=== PATIENT | male | born 1945 | race Caucasian/White ===

== ENCOUNTER → 2016-09-22 | Outpatient (CLI) | payer MEDICARE ==
[~2016-09-22] MED LIST: ASP81TEC PO; CLOP75TA28 PO; FINA5TAB6 PO; HYDR-3454 PO; ISOS30TA3 PO; LISI-552 PO; LISI10TA2 PO; LOVA20TA2 PO; LOVA40TA2 PO; LSNP20T PO; METO-351 PO; OMG1KC PO; TAMS0.4C2 PO; TICA90TA PO; TRAM50TA2
--- OUTSIDE RECORDS SUMMARY | 2016-09-22 17:01 | XMS REPORT | Continuity of Care Document ---
Author Author [facility] Organization [facility] Address Unknown Phone Unavailable Care Team Providers Care Anesthesiologists' Assistant Name Role Phone Yassine Garcia PCP Unavailable Source Comments Some departments are not documenting in the electronic medical record. If you do not see the information that you expected, contact Release of Information in the Health Information Management department at [phone] for further assistance in locating additional records.[facility] Active Allergies and Adverse Reactions No Known Allergies Current Medications Prescription Sig. Disp. Refills Start End Date Status Date aspirin EC 81 mg tablet Take 81 mg by mouth Active daily. Take with food. clopiDOGrel (PLAVIX) 75 Take 75 mg by mouth Active mg tablet daily. lisinopril (PRINIVIL; Take 10 mg by mouth Active ZESTRIL) 10 mg tablet daily. finasteride (PROSCAR) 5 Take 5 mg by mouth at Active mg tablet bedtime daily. lovastatin(+) (MEVACOR) Take 20 mg by mouth at Active 20 mg tablet bedtime daily. tamsulosin (FLOMAX) 0.4 Take 0.4 mg by mouth at Active mg capsule bedtime daily. Do not crush, chew or open capsules. Take 30 minutes following the same meal each day. metoprolol XL (TOPROL XL) Take 25 mg by mouth Active 25 mg extended release daily. tablet [place]-3 Fatty Take 3 Caps by mouth Active Acids-Vitamin E (FISH daily. OIL) 1,000 mg cap piperacillin/tazobactam Administer 3.375 g 1400 mL 0 09/20/19 Active (ZOSYN) iso-osmotic IVPB through vein every 6 17 17 hours for 7 days. Active Problems Problem Noted Date Obstructive jaundice 09/11/2016 Diarrhea 09/11/2016 Weight loss 09/11/2016 Transaminitis 09/11/2016 Hyperbilirubinemia 09/11/2016 Most Recent Encounters Date Type Specialty Providers Description 09/21/2016 Telephone Infectious Diseases Virginia Rincon DO Outpatient Antibiotic Therapy (Opat) 09/18/2016 [facility] Radiology Nataliia Dumas DO Arrived Encounter 09/18/2016 Orders Only Transplant Surgery Teo Brooke RN Obstructive jaundice (Primary Dx) 09/18/2016 Telephone General Internal Medicine Nataliia Dumas DO Post Procedure 09/16/2016 [facility] Radiology Clara Patel APRN Arrived Encounter Kobi Alvarez RN Lemons, Steven, MD 09/14/2016 [facility] Radiology Scottie Kan MD Encounter 09/14/2016 Screening Form 09/14/2016 Endo Rslt Enc Self, Referral 09/14/2016 Endo Rslt Enc Self, Referral 09/14/2016 Anesthesia Lottie Garcia, PRINTER MAINTAINER Event 09/14/2016 Surgery Mykel Chambers MD ULTRASONOGRAPHY ENDOSCOPY ESOPHAGUS 09/12/2016 Telephone Gastroenterology Deepak Fam MD Error 09/11/2016 [facility] Radiology Gabriel Newberry MD Encounter 09/11/2016 [facility] Nereyda Muhammad MD Obstructive jaundice - Encounter Gabriel Newberry MD 09/20/2016 Nataliia Dumas DO Olyaee, Mojtaba, MD Social History Tobacco Use Types Packs/Day Years Used Date Former Smoker Alcohol Use Drinks/Week oz/Week Comments No 0 Standard 0.0 drinks or equivalent Last Filed Vital Signs Vital Sign Reading Time Taken Blood Pressure 116/59 09/20/2016 3:00 PM [facility] Pulse 56 09/20/2016 3:00 PM [facility] [employer] Temperature 36.4 C (97.5 F) 09/20/2016 3:00 PM [facility] [employer] Respiratory Rate - - Height 1.778 m (5' 10") 09/15/2016 11:34 AM [facility] Weight 78.926 kg (174 lb) 09/15/2016 11:34 AM [employer] Body Mass Index 24.97 09/15/2016 11:34 AM [employer] Oxygen Saturation 99% 09/20/2016 3:00 PM [facility] [employer] Plan of Care Date Type Specialty Providers Description 10/01/2016 Appointment Radiology Taco Jung MD [address] [place] [address] [phone] (Fax) 10/01/2016 Appointment Transplant Surgery Taco Jung MD [address] [place] [address] [phone] (Fax) 10/01/2016 Appointment Infectious Diseases Virginia Rincon DO [address] [place] [address] [phone] (Fax) 10/01/2016 Appointment Anesthesiology Taco Jung MD [address] [place] [address] [phone] (Fax) 10/01/2016 Appointment Radiology Virginia Rincon DO [address] [place] [address] [phone] (Fax) Health Maintenance Due Date Last Done Comments Physical (Comprehensive) 1952 Exam Pertussis Vaccine 1954 Tetanus Vaccine 1960 Colorectal Cancer 1993 Screening Shingles Vaccine 2003 Prevnar/Pneumovax (#1) 2008 Influenza Vaccine 05/14/2016 Procedures from Last 3 Months Procedure Name Priority Date/Time Associated Diagnosis Comments CONSULT IV THERAPY TEAM Routine 09/19/2016 1:31 PM [facility] CONSULT IV THERAPY TEAM Routine 09/16/2016 2:02 PM [facility] CHOLANGIOPANCREATOGRAPHY 09/14/2016 [place]'s tumor (HCC) ENDOSCOPY RETROGRADE 1:15 PM [employer] ULTRASONOGRAPHY ENDOSCOPY 09/14/2016 [place]'s tumor (HCC) ESOPHAGUS 1:15 PM [facility] Results from Last 3 Months COMPREHENSIVE METABOLIC PANEL (09/20/2016 4:05 AM)Only the most recent of 10 results within the time period is included. Component Value Range Sodium 135 (L) 137-147 MMOL/L Potassium 3.6 3.5-5.1 MMOL/L Chloride 104 98-110 MMOL/L Glucose 105 (H) 70-100 MG/DL Blood Urea Nitrogen 15 7-25 MG/DL Creatinine 0.96 0.4-1.24 MG/DL Calcium 8.4 (L) 8.5-10.6 MG/DL Total Protein 5.6 (L) 6.0-8.0 G/DL Total Bilirubin 4.7 (H) 0.3-1.2 MG/DL Albumin 2.7 (L) 3.5-5.0 G/DL Alk Phosphatase 377 (H) 25-110 U/L AST (SGOT) 52 (H) 7-40 U/L CO2 23 21-30 MMOL/L ALT (SGPT) 58 (H) 7-56 U/L Anion Gap 8 3-12 eGFR Non >60Comment: >60 mL/min The eGFR is not validated for use in drug dosing adjustments. Continue to use estimated creatinine clearance per dosing reference text. Please contact the Clinical Pharmacist for questions. eGFR >60Comment: >60 mL/min The eGFR is not validated for use in drug dosing adjustments. Continue to use estimated creatinine clearance per dosing reference text. Please contact the Clinical Pharmacist for questions. Specimen Blood CBC AND DIFF (09/20/2016 4:05 AM)Only the most recent of 10 results within the time period is included. Component Value Range White Blood Cells 8.0 4.5-11.0 K/UL RBC 3.63 (L) 4.4-5.5 M/UL Hemoglobin 11.4 (L) 13.5-16.5 GM/DL Hematocrit 32.9 (L) 40-50 % MCV 90.9 80-100 FL MCH 31.4 26-34 PG MCHC 34.5 32.0-36.0 G/DL RDW 14.4 11-15 % Platelet Count 200 150-400 K/UL MPV 10.5 7-11 FL Neutrophils 72 41-77 % Lymphocytes 15 (L) 24-44 % Monocytes 9 4-12 % Eosinophils 4 0-5 % Basophils 0 0-2 % Absolute Neutrophil Count 5.80 1.8-7.0 K/UL Absolute Lymph Count 1.20 1.0-4.8 K/UL Absolute Monocyte Count 0.70 0-0.80 K/UL Absolute Eosinophil Count 0.30 0-0.45 K/UL Absolute Basophil Count 0.00 0-0.20 K/UL Specimen Blood US DOPPLER VENOUS W EXTRM LEFT (09/18/2016 8:18 PM) Impressions No evidence of left upper extremity DVT. Finalized by EDMUNDO MCNEAL M.D. on 09/19/2016 8:31 AM. Dictated by EDMUNDO MCNEAL M.D. on 09/19/2016 8:29 AM. Narrative Ultrasound Doppler of left upper extremity: Clinical Indication: 71-year-old male with left upper extremity swelling. Weight loss. Obstructive jaundice. Technique: Multiple real-time grayscale sonographic images were obtained throughout the left upper extremity with additional color Doppler and duplex acquisitions. Findings: There is no filling defect within the left cephalic, brachial, basilic or axillary veins in the left upper extremity. The left subclavian, internal jugular and innominate veins are widely patent. Subcutaneous edema is present within the upper arm and forearm. Procedure Note Interface, Radiant Results - Sat Sep 19, 2016 8:34 AM [facility] Ultrasound Doppler of left upper extremity: Clinical Indication: 71-year-old male with left upper extremity swelling. Weight loss. Obstructive jaundice. Technique: Multiple real-time grayscale sonographic images were obtained throughout the left upper extremity with additional color Doppler and duplex acquisitions. Findings: There is no filling defect within the left cephalic, brachial, basilic or axillary veins in the left upper extremity. The left subclavian, internal jugular and innominate veins are widely patent. Subcutaneous edema is present within the upper arm and forearm. IMPRESSION No evidence of left upper extremity DVT. Finalized by EDMUNDO MCNEAL M.D. on 09/19/2016 8:31 AM. Dictated by EDMUNDO MCNEAL M.D. on 09/19/2016 8:29 AM. IR ASPIRATION/DRAIN (09/18/2016 4:08 PM) Narrative This IR procedure does not require a dictated result. CT GUIDE ABCESS DRAIN W CATH (09/16/2016 10:07 AM) Impressions CT-guided transhepatic placement of a 8 Tunisian pigtail drain into the subhepatic fluid collection/biloma. Approved by Bal George M.D. on 09/16/2016 10:23 AM By my electronic signature, I attest that I have personally reviewed the images for this examination and formulated the interpretations and opinions expressed in this report Finalized by Nicholas Borrego M.D. on 09/16/2016 2:01 PM. Dictated by Bal George M.D. on 09/16/2016 10:[address]-guided drain placement: Clinical Indication: Subhepatic fluid collection/biloma Operators: Chester Borrego M.D., Bal George M.D. Technique and Findings: Chester Mohamud M.D, the attending radiologist, was present for the critical and irizarry portions of the procedure with a midlevel, resident, and/or fellow participating.Overlapping portions were non irizarry and I was immediately available.I interpret the critical and irizarry portion of this procedure to have been needle access. The nature of the procedure, risks, benefits, and expected outcomes were discussed with the patient who then provided informed written and verbal consent. The patient was placed in a supine position on the CT scanner. Initial scans through the abdomen demonstrated a subhepaticfluid collection. There is limited access due to overlying bowel loops, so a transhepatic approach was used. The patient was prepped and draped in the usual sterile manner and the superficial tissues were anesthetized with 2% lidocaine solution. An 18 gauge Seldinger needle was advanced into the fluid collection under CT guidance. Green , purulent fluid was aspirated. A Aceves wire was advanced into the fluid collection and a 8 Tunisian pigtail catheter was advanced into the fluid collection. Approximately 10 ml of fluid was aspirated. The pigtail catheter was sutured in place and connected to a J VAC system. The patient tolerated the procedure well and left the department in unchanged condition. IV medication: 3 mg Versed, 150 mcg fentanyl. Procedure Note Interface, Radiant Results - WedSep 16, 2016 2:[address]-guided drain placement: Clinical Indication: Subhepatic fluid collection/biloma Operators: Chester Borrego M.D., Bal George M.D. Technique and Findings: Chester Mohamud M.D, the attending radiologist, was present for the critical and irizarry portions of the procedure with a midlevel, resident, and/or fellow participating. Overlapping portions were non irizarry and I was immediately available. I interpret the critical and iriazrry portion of this procedure to have been needle access. The nature of the procedure, risks, benefits, and expected outcomes were discussed with the patient who then provided informed written and verbal consent. The patient was placed in a supine position on the CT scanner. Initial scans through the abdomen demonstrated a subhepatic fluid collection. There is limited access due to overlying bowel loops, so a transhepatic approach was used. The patient was prepped and draped in the usual sterile manner and the superficial tissues were anesthetized with 2% lidocaine solution. An 18 gauge Seldinger needle was advanced into the fluid collection under CT guidance. Green , purulent fluid was aspirated. A Aceves wire was advanced into the fluid collection and a 8 Tunisian pigtail catheter was advanced into the fluid collection. Approximately 10 ml of fluid was aspirated. The pigtail catheter was sutured in place and connected to a J VAC system. The patient tolerated the procedure well and left the department in unchanged condition. IV medication: 3 mg Versed, [address]-guided transhepatic placement of a 8 Tunisian pigtail drain into the subhepatic fluid collection/biloma. Approved by Bal George M.D. on 09/16/2016 10:23 AM By my electronic signature, I attest that I have personally reviewed the images for this examination and formulated the interpretations and opinions expressed in this report Finalized by Nicholas Borrego M.D. on 09/16/2016 2:01 PM. Dictated by Bal George M.D. on 09/16/2016 10:21 AM. GRAM STAIN (09/16/2016 9:15 AM) Component Value Range Battery Name GRAM STAIN Specimen Description MISC FLUID ABDOMEN ABSCESS Special Requests NONE Gram Stain MODERATE NEUTROPHILS NO ORGANISMS SEEN Report Status FINAL 09/16/2016 Specimen Misc Fluid CULTURE-WOUND/TISSUE/FLUID(AEROBIC ONLY)W/SENSITIVITY (09/16/2016 9:15 AM) Component Value Range Battery Name ROUTINE CULTURE Specimen Description MISC FLUID ABDOMEN ABSCESS Special Requests NONE Direct Gram Stain MANY NEUTROPHILS NO ORGANISMS SEEN Culture Light growth PSEUDOMONAS AERUGINOSA (A) Report Status FINAL 09/18/2016 Organism ID Light growth PSEUDOMONAS AERUGINOSA Specimen Fluid - Misc Fluid Organism Antibiotic Method Susceptibility Light growth pseudomonas aeruginosa Amikacin NIKOLAS <=8 SUSCEPTIBLE: (MCG/ML) Susceptible INTERPRETA TION Light growth pseudomonas aeruginosa Cefepime NIKOLAS 8 SUSCEPTIBLE: (MCG/ML) Susceptible INTERPRETA TION Light growth pseudomonas aeruginosa Ceftazidime NIKOLAS 4 SUSCEPTIBLE: (MCG/ML) Susceptible INTERPRETA TION Light growth pseudomonas aeruginosa Gentamicin NIKOLAS <=2 SUSCEPTIBLE: (MCG/ML) Susceptible INTERPRETA TION Light growth pseudomonas aeruginosa Levofloxacin NIKOLAS >4 RESISTANT: Resistant (MCG/ML) INTERPRETA TION Light growth pseudomonas aeruginosa Meropenem NIKOLAS 8 RESISTANT: Resistant (MCG/ML) INTERPRETA TION Light growth pseudomonas aeruginosa Piperacil/Tazobactam NIKOLAS 8/4 SUSCEPTIBLE: (MCG/ML) Susceptible INTERPRETA TION Light growth pseudomonas aeruginosa Tobramycin NIKOLAS <=2 SUSCEPTIBLE: (MCG/ML) Susceptible INTERPRETA TION Light growth pseudomonas aeruginosa Aztreonam NIKOLAS 16 INTERMEDIATE: (MCG/ML) Intermediate INTERPRETA TION Light growth pseudomonas aeruginosa Method NIKOLAS NIKOLAS (MCG/ML) (MCG/ML) INTERPRETATION INTERPRETA TION CULTURE-ANAEROBIC (09/16/2016 9:15 AM) Component Value Range Battery Name ANAEROBE CULTURE Specimen Description MISC FLUID ABDOMEN ABSCESS Special Requests NONE Culture NO ANAEROBES ISOLATED Report Status FINAL 09/22/2016 Specimen Fluid - Misc Fluid 2-D + DOPPLER ECHOCARDIOGRAM (09/15/2016 11:34 AM) Component Value Range BSA 1.97 m2 ECHO EF 55 % LVIDD 5.5 4.2-5.9 cm LVIDS 4.2 cm IVS 1.0 0.6-1.0 cm PW 0.9 0.6-1.0 cm FS 23.64 28-44 % EF 40.19 % LA size 4.8 3.0-4.0 cm LA volume 63.0 18-58 mL Left Atrium Index 31.98 10-32 Right Ventricular Basal 2.9 cm (2.4-4.2) Diameter Right Atrial Area 14.0 cm2 (<=18) Right Ventricular Mid 2.1 cm (2.0-3.5) Diameter Right Atrial Major 4.9 cm (<=5.3) Dimension Right Ventricular Long 6.6 cm (5.6-8.6) Diameter Sinus 3.5 2.1-3.5 cm AV peak velocity 1.2 m/s TV rest pulmonary artery 30 mmHg pressure E/A ratio 1.29 TDI e' 0.100 m/s E/E' ratio 9.00 MV Peak E Colt PW 0.900 m/s MV Peak A Colt 0.700 m/s Narrative Normal chamber sizes Normal left ventricular systolic function with EF=55% Normal cardiac valve structure; Mild aortic valve regurgitation. Normal pulmonary artery pressure with estimated systolic PAP=30mm Hg MRI ABD/MRCP WO/W (09/15/2016 10:27 AM) Impressions 1. Unchanged 3.5 cm fluid collection in the katy hepatis along the common hepatic duct that was noted to opacify with contrast on the September 14, 2016 ERCP.This is most consistent with a loculated biloma.Super infected fluid collection/biloma is an additional consideration given the additional ERCP findings. 2.Additional 4.1 cm fluid collection just right lateral to the duodenal bulb.Leading consideration is either a loculated area of reactive ascites or loculated biloma. 3.Development of mild, partially loculated perihepatic ascites, also likely reactive and which could be reactive ascites due to bile. 4.Development of minimal bilateral pleural effusions and mild adjacent atelectasis 5.Persistent findings of mild pancreatitis. 6.Mild intrahepatic biliary ductal dilatation.Artifact in the common bile duct either represents biliary stents or gas, though which is poorly evaluated by MRI. These findings were discussed with Dr. Dumas by telephone at 11:20 AM September Finalized by Maikol Veloz M.D. on 09/15/2016 11:25 AM. Dictated by Maikol Veloz M.D. on 09/15/2016 10:37 AM. Narrative MRI ABDOMEN AND MRCP Clinical Indication:Male, 71 years old. Mixed echogenicity irregular mass measuring up to 30 mm x 20 mm was noted in the katy hepatis area with some cystic degeneration and concern for abscess.Obstructive jaundice. Diarrhea.Weight loss.Transaminitis. Technique: Multisequence and multiplanar MR imaging was obtained through the abdomen before and following the administration of gadolinium contrast material. Additionally, noncontrast MRCP imaging was also obtained. IV Contrast:Multihance Bowel contrast: None Magnet:1.5 Lamar GE Comparison: ERCP September 14, 2016.CT September 11, 2016. FINDINGS: Lower Thorax: Development of minimal bilateral pleural effusions and mild adjacent atelectasis. Median sternotomy wires are partially visualized. Liver and Biliary system: Normal size liver without a focal lesion.There are patchy areas of heterogeneous hyperenhancement scattered throughout both lobes of the liver, which is more obvious in hepatic segment 7, that all fade on later phases of imaging and is most consistent with benign perfusion alterations.The major portal veins are all patent.A few mildly enlarged periportal lymph nodes are unchanged.Prior cholecystectomy.There is mild intrahepatic biliary ductal dilation.There is artifact in the common bile duct, either representing gas or a biliary stent.Along the course of the common hepatic duct (series 9 image 24, series 15 image 195) measuring 3.5 cm that was not present on the September 11, 2016 CT exam though appear to be present on the September 14, 2016 ERCP, and it appears to opacify with contrast on that exam.There is a minimal amount of gas within this fluid collection on the current exam.There is also been development of a small amount of perihepatic ascites, primarily located peripheral to the liver with a small amount of edema and fluid extending into the region of the katy hepatis. There is also an additional, separate fluid collection along the right lateral margin of the duodenal bulb (series 9 image 28) measuring 4.1 cm. Spleen: Unchanged mild splenomegaly Adrenal Glands and Kidneys: Unremarkable. Pancreas and Retroperitoneum: Mild persistent peripancreatic edema adjacent to the pancreatic body and tail.There are a few tiny 2 to 3 mm cystic lesions scattered throughout the pancreatic parenchyma.The main pancreatic duct is normal in caliber.There are multiple prominent central mesenteric lymph nodes present that are unchanged. Aorta and Major Vessels: Unchanged minimal focal fusiform ectasia of the infrarenal abdominal aorta measuring up to 2.4 cm with a small amount of eccentric mural thrombus at this site that is also unchanged. Bowel, Mesentery and Peritoneal space: Mild edema adjacent to the second portion of the duodenum is unchanged.An enlarged gastrohepatic ligament lymph node is unchanged (series 15 image 168) measuring 1.7 x 2.3 cm. Abdominal wall and Osseous Structures: Unremarkable. Procedure Note Interface, Radiant Results - Tue Sep 15, 2016 11:28 AM [facility] MRI ABDOMEN AND MRCP Clinical Indication: Male, 71 years old. Mixed echogenicity irregular mass measuring up to 30 mm x 20 mm was noted in the katy hepatis area with some cystic degeneration and concern for abscess. Obstructive jaundice. Diarrhea. Weight loss. Transaminitis. Technique: Multisequence and multiplanar MR imaging was obtained through the abdomen before and following the administration of gadolinium contrast material. Additionally, noncontrast MRCP imaging was also obtained. IV Contrast:Multihance Bowel contrast: None Magnet:1.5 Lamar Sanera Comparison: ERCP September 14, 2016. CT September 11, 2016. FINDINGS: Lower Thorax: Development of minimal bilateral pleural effusions and mild adjacent atelectasis. Median sternotomy wires are partially visualized. Liver and Biliary system: Normal size liver without a focal lesion. There are patchy areas of heterogeneous hyperenhancement scattered throughout both lobes of the liver, which is more obvious in hepatic segment 7, that all fade on later phases of imaging and is most consistent with benign perfusion alterations. The major portal veins are all patent. A few mildly enlarged periportal lymph nodes are unchanged. Prior cholecystectomy. There is mild intrahepatic biliary ductal dilation. There is artifact in the common bile duct , either representing gas or a biliary stent. Along the course of the common hepatic duct (series 9 image 24, series 15 image 195) measuring 3.5 cm that was not present on the September 11, 2016 CT exam though appear to be present on the September 14, 2016 ERCP, and it appears to opacify with contrast on that exam. There is a minimal amount of gas within this fluid collection on the current exam. There is also been development of a small amount of perihepatic ascites, primarily located peripheral to the liver with a small amount of edema and fluid extending into the region of the katy hepatis. There is also an additional, separate fluid collection along the right lateral margin of the duodenal bulb (series 9 image 28) measuring 4.1 cm. Spleen: Unchanged mild splenomegaly Adrenal Glands and Kidneys: Unremarkable. Pancreas and Retroperitoneum: Mild persistent peripancreatic edema adjacent to the pancreatic body and tail. There are a few tiny 2 to 3 mm cystic lesions scattered throughout the pancreatic parenchyma. The main pancreatic duct is normal in caliber. There are multiple prominent central mesenteric lymph nodes present that are unchanged. Aorta and Major Vessels: Unchanged minimal focal fusiform ectasia of the infrarenal abdominal aorta measuring up to 2.4 cm with a small amount of eccentric mural thrombus at this site that is also unchanged. Bowel, Mesentery and Peritoneal space: Mild edema adjacent to the second portion of the duodenum is unchanged. An enlarged gastrohepatic ligament lymph node is unchanged (series 15 image 168) measuring 1.7 x 2.3 cm. Abdominal wall and Osseous Structures: Unremarkable. IMPRESSION 1. Unchanged 3.5 cm fluid collection in the katy hepatis along the common hepatic duct that was noted to opacify with contrast on the September 14, 2016 ERCP. This is most consistent with a loculated biloma. Super infected fluid collection/biloma is an additional consideration given the additional ERCP findings. 2. Additional 4.1 cm fluid collection just right lateral to the duodenal bulb. Leading consideration is either a loculated area of reactive ascites or loculated biloma. 3. Development of mild, partially loculated perihepatic ascites, also likely reactive and which could be reactive ascites due to bile. 4. Development of minimal bilateral pleural effusions and mild adjacent atelectasis 5. Persistent findings of mild pancreatitis. 6. Mild intrahepatic biliary ductal dilatation. Artifact in the common bile duct either represents biliary stents or gas, though which is poorly evaluated by MRI. These findings were discussed with Dr. Dumas by telephone at 11:20 AM September Finalized by Maikol Veloz M.D. on 09/15/2016 11:25 AM. Dictated by Maikol Veloz M.D. on 09/15/2016 10:37 AM. GI ENDO CATH VENICE & PANC DUCT (09/14/2016 6:47 PM) Narrative This order has been auto finalized and does not contain a result. ERCP (09/14/2016 2:48 PM) Component Value Range Provation Report Patient Name: Vanessa Contreras Procedure Date: 09/14/2016 2:48 PM CSN: [id number] Date of : 1945 Gender: Male Attending Physician: Mykel Chambers MD Procedure: ERCP Indications: Ab normal liver function test, suspected biliary mass. Patient is post ERCP with biliary stent and now increasing LFTs. No histological diagnosis . Providers: Mykel Chambers MD (Doctor), Scottie Kan MD (Fellow), Arturo Ceron RN (Nurse), David Hughes, Park Guide (Park Guide) Referring Physician: Referral Self Medications: Ge neral Anesthesia Complications: No immediate complications. Procedure: Pre-Anesthesia Assessment: - Prior to the procedure, a History and Physical was performed, and patient medications and allergies were reviewed. The patient's tolerance of previous anesthesia was also reviewed. The risks and benefits of the procedure and the sedation options and risks were discussed with the patient. All questions were answered, and informed consent was obtained. Prior Anticoagulants: The patient has taken Plavix (clopidogrel), last dose was 5 days prior to procedure. ASA Grade Assessment: III - A patient with severe systemic disease. After reviewing the risks and benefits, the patient was deemed in satisfactory condition to undergo the procedure. After obtaining informed consent, the scope was passed under direct vision. Throughout the procedure, the patient's blood pressure, pulse, and oxygen saturations were monitored continuously. The Duodenoscope 0911 was introduced through the mouth, and advanced to the duodenum and used to inject contrast into the bile duct. The ERCP was accomplished without difficulty. The patient tolerated the procedure well. Findings: The limited views of the esophagus, stomach, and duodenum were unremarkable. The pylorus was patent and major papilla was identified in the duodenum. A plastic biliary stent was noted in place which did not appear to be draining and had dislodged. It was grasped with a snare and removed. Pus was seen exiting the papilla. CBD cannulated with a stone extraction balloon and wire. Cholangiogram was performed and the contrast silhouetted a large area just distal to the hilum in a circular fashion. Proximal to this area, the right and left intrahepatic ducts were visualized with filling defects. Left and right intrahepatic ducts were separately cannulated and swept with balloon catheter. Balloon sweeps yielded large amount of pus and a couple of large stones. Then two 10 Fr 5 cm double pigtail stents were deployed, one in the left and the other in the right intrahepatic ducts. The scope was withdrawn after decompressing the stomach and duodenum and the procedure was terminated. Acquisition and interpretation of fluoroscopic images was performed. Impression: The limited views of the esophagus, stomach, and duodenum were unremarkable. The pylorus was patent and major papilla was identified in the duodenum. A plastic biliary stent was noted in place which did not appear to be draining and had dislodged. It was grasped with a snare and removed. Pus was seen exiting the papilla. CBD cannulated with a stone extraction balloon and wire. Cholangiogram was performed and the contrast silhouetted a large area just distal to the hilum in a circular fashion. Proximal to this area, the right and left intrahepatic ducts were visualized with filling defects. Left and right intrahepatic ducts were separately cannulated and swept with balloon catheter. Balloon sweeps yielded large amount of pus and a couple of large stones. Then two 10 Fr 5 cm double pigtail stents were deployed, one in the left and the other in the right intrahepatic ducts. The scope was withdrawn after decompressing the stomach and duodenum and the procedure was terminated. Acquisition and interpretation of fluoroscopic images was performed. Estimated Blood Loss: Estimated blood loss was minimal. Recommendation: - Observe patient's clinical course. - IV antibiotics (Zosyn) - MRI/MRCP of the liver to better delineate area of filling - IR consult for external drainage - Surgical consult Scope In: 4:56:09 PM Scope Out: 5:47:18 PM Total Procedure Duration Time 0 hours 51 minutes 9 seconds Procedure Code(s): --- Professional --- 85801, Endoscopic retrograde cholangiopancreatography (ERCP); with placement of endoscopic stent into biliary or pancreatic duct, including pre- and post-dilation and guide wire passage, when performed, including sphincterotomy, when performed, each stent 72369, Endoscopic retrograde cholangiopancreatography (ERCP); with removal of foreign body(s) or stent(s) from biliary/pancreatic duct(s) 61996, Endoscopic retrograde cholangiopancreatography (ERCP); with removal of calculi/debris from biliary/pancreatic duct(s) 21889, Endoscopic retrograde cholangiopancreatography (ERCP); diagnostic, including collection of specimen(s) by brushing or washing, when performed (separate procedure) Diagnosis Code(s): --- Professional --- R94.5, Abnormal results of liver function studies CPT copyright 2015 [employer]. All rights reserved. The codes documented in this report are preliminary and upon field service tech review may be revised to meet current compliance requirements. Attending Participation: I was present and participated during the entire procedure, including non-irizarry portions. MD Mykel Alexander MD 09/14/2016 6:26:14 PM The attending physician has electronically signed and finalized this document. Scottie Kan MD Number of Addenda: 0 Note Initiated On: 09/14/2016 2:48 PM ENDOSCOPIC ULTRASOUND (09/14/2016 1:19 PM) Component Value Range Provation Report Patient Name: Vanessa Contreras Procedure Date: 09/14/2016 1:19 PM CSN: [id number] Date of : 1945 Gender: Male Attending Physician: Mykel Chambers MD Procedure: Upper EUS Indications: Ab normal liver function test, suspected biliary mass. Patient is post ERCP with biliary stent and now increasing LFTs. No histological diagnosis . Providers: Mykel Chambers MD (Doctor), Scottie Kan MD (Fellow), Arturo Ceron RN (Nurse), David Hughes, Park Guide (Park Guide) Referring Physician: Referral Self Medications: Pr opofol per Anesthesia Complications: No immediate complications. Procedure: After obtaining informed consent, the endoscope was passed under direct vision. Throughout the procedure, the patient's blood pressure, pulse, and oxygen saturations were monitored continuously. The Endoscope was introduced through the mouth, and advanced to the duodenal bulb. The upper EUS was accomplished without difficulty. The patient tolerated the procedure well. Findings: Endosonographic Finding : The celiac axis was visualized endosonographically and normal with no lymph nodes. The pancreatic parenchyma appeared normal in the head, body and tail with normal caliber PD and no evidence for chronic pancreatitis. A mixed echogenicity irregular mass measuring up to 30 mm x 20 mm was noted in the katy hepatis area with some cystic degeneration. FNA x 4 was performed and tissue obtained for cytology. A katy hepatis lymph node was noted measuring up to 20 mm x 10 mm. CBD was noted with biliary stent in place and measuring up to 6 mm. Impression: - The celiac axis was visualized endosonographically and normal with no lymph nodes. The pancreatic parenchyma appeared normal in the head, body and tail with normal caliber PD and no evidence for chronic pancreatitis. A mixed echogenicity irregular mass measuring up to 30 mm x 20 mm was noted in the katy hepatis area with some cystic degeneration. FNA x 4 was performed and tissue obtained for cytology. A katy hepatis lymph node was noted measuring up to 20 mm x 10 mm. CBD was noted with biliary stent in place and measuring up to 6 mm. Estimated Blood Loss: Estimated blood loss was minimal. Recommendation: - Await cytology results. - Proceed with ERCP Scope In: 4:19:34 PM Scope Out: 4:52:19 PM Total Procedure Duration Time 0 hours 32 minutes 45 seconds Procedure Code(s): --- Professional --- 65686, Esophagogastroduodenoscopy, flexible, transoral; with transendoscopic ultrasound-guided intramural or transmural fine needle aspiration/biopsy(s), (includes endoscopic ultrasound examination limited to the esophagus, stomach or duodenum, and adjacent structures) Diagnosis Code(s): --- Professional --- R94.5, Abnormal results of liver function studies CPT copyright 2015 [employer]. All rights reserved. The codes documented in this report are preliminary and upon field service tech review may be revised to meet current compliance requirements. Attending Participation: I was present and participated during the entire procedure, including non-irizarry portions. MD Mykel Alexander MD 09/14/2016 6:26:42 PM The attending physician has electronically signed and finalized this document. Scottie Kan MD Number of Addenda: 0 Note Initiated On: 09/14/2016 1:19 PM FINE NEEDLE ASPIRATE (FNA) (09/14/2016 8:48 AM) Component Value Range Cytology [email or web address] Carla Meyer MD, Director Cytopathology Department of Pathology and Laboratory Medicine [address] [place] [id number] Surgical Pathology Office: [phone] CYTOLOGY REPORT NAME: BEN MENDEZ SURG PATH #: [id number] MR #: [id number] ALT ID #: [id number] #: [id number] LOCATION: [facility] DATE OF PROCEDURE: 09/14/2016 AGE: 71 SEX: M DATE RECEIVED: 09/15/2016 : 1945 TIME RECEIVED: 08:48 PHYSICIAN: MYKEL CHAMBERS MGAmie DATE OF REPORT: 09/17/2016 COPY TO: MD NATALIIA WHEELER DO TERESA M KING, MD DATE OF PRINTIN09/17/2016 Material Received: A: FNA Liver-Katy hepatic mass History: 71 year old male with jaundice. Gross Description: (1 Cell block) No adequacy was perfromed. 11 mL clear colorless fluid. ################################################## ###################### Final Diagnosis: A. FNA Liver-Katy hepatic mass: Necroinflammatory exudate. Negative for malignant cells in this material. Attestation: By this signature, I attest that I have personally formulated the final interpretation expressed in this report and that the above diagnosis is based upon my examination of the slides and/or other material indicated in this report. +++Electronically Signed Out By+++ mp/09/16/2016 Interpreted by: Maxine Perez MD, Attending Physician Julian Xavier MD Fellow CHEST SINGLE VIEW (09/13/2016 6:43 PM) Impressions No acute cardiopulmonary pathology is identified Finalized by Lambert Chaudhari M.D. on 09/14/2016 11:25 AM. Dictated by Lambert Chaudhari M.D. on 09/14/2016 11:22 AM. Narrative Chest single view. This is a 71-year-old male with shortness of air. Comparison is made with a CT exam from September 11. The heart is nonenlarged. The pulmonary vasculature is not engorged. The lungs are fully expanded and free of airspace infiltrate. The osseous structures are grossly intact. Sternotomy wires are again noted. Procedure Note Interface, Radiant Results - WedSep 14, 2016 11:28 AM CADMIUM PLATER Chest single view. This is a 71-year-old male with shortness of air. Comparison is made with a CT exam from September 11. The heart is nonenlarged. The pulmonary vasculature is not engorged. The lungs are fully expanded and free of airspace infiltrate. The osseous structures are grossly intact. Sternotomy wires are again noted. IMPRESSION No acute cardiopulmonary pathology is identified Finalized by Lambert Chaudhari M.D. on 09/14/2016 11:25 AM. Dictated by Lambert Chaudhari M.D. on 09/14/2016 11:22 AM. CULTURE-BLOOD W/SENSITIVITY (09/12/2016 4:55 AM)Only the most recent of 2 results within the time period is included. Component Value Range Battery Name BLOOD CULTURE Specimen Description BLOOD RIGHT HAND Special Requests NONE Culture NO GROWTH 5 DAYS Report Status FINAL 09/18/[address] CHEST W CONTRAST (09/12/2016 12:24 AM) Impressions CHEST: 1. No thoracic lymphadenopathy or evidence of metastatic disease. 2. Calcific coronary artery disease with prior median sternotomy and CABG. ABDOMEN AND PELVIS: 1. Slight enlargement of the pancreas diffusely with mild peripancreatic stranding and minimal fluid consistent with acute pancreatitis. Some mild periportal edema is also present and likely related to acute pancreatitis. 2. Mild intrahepatic bile duct dilation and pneumobilia with internal biliary stent in place. Reported cholangiocarcinoma is not discretely visualized on this exam. 3. Mild mural edema in adjacent stranding about the second portion of the duodenum which is likely secondary to adjacent pancreatic inflammation. 4. Marked prostate enlargement. Preliminary findings were discussed with Gabriel Cartagena MD by phone at 4: 18 AM on 09/12/2016. By my electronic signature, I attest that I have personally reviewed the images for this examination and formulated the interpretations and opinions expressed in this report Finalized by Wilfrid Nguyen M.D. on 09/12/2016 5:19 AM. Dictated by Sujit Valdez M.D. on 09/12/2016 3:[address] CHEST, ABDOMEN AND PELVIS Clinical Indication:Male, 71 years old. Staging for suspected cholangiocarcinoma malignancy. Status post ERCP with elevated lipase. Technique: Multiple contiguous axial images were obtained through the chest, abdomen and pelvis following the administration of IV contrast material. Post processing coronal and sagittal reconstruction images were made from the axial images. IV contrast: 100 mL Isovue 370. Bowel contrast:None. Comparison: None. CHEST FINDINGS: Lower neck: Unremarkable. Axilla, Mediastinum and Gifty: No thoracic lymphadenopathy. Heart and Great Vessels: Prior median sternotomy and CABG. [place] calcific coronary artery disease. The heart size is normal. Normal caliber thoracic aorta. Airway, Lungs and Pleura: The central airways are patent. Mild bibasilar linear atelectasis and minimal scarring. No pleural effusion. Calcified granulomas are noted in the posterior right lower lobe and in the left upper lobe. No suspicious noncalcified pulmonary nodules identified. Chest Wall and Osseous Structures: No destructive osseous lesions. ABDOMEN AND PELVIS FINDINGS: Liver and Biliary system: The liver is normal in size. Internal biliary stent is in place extending from the common bile duct to the duodenum. Mild intrahepatic bile duct dilation, greatest centrally, with pneumobilia, predominantly involving the left hepatic lobe. Some periportal edema is also present in the liver. Prior cholecystectomy. The portal veins are patent. Spleen: Upper limits of normal in size without focal lesion. Adrenal Glands and Kidneys: The adrenal glands are unremarkable. No renal mass, nephroureterolithiasis or hydronephrosis. Pancreas and Retroperitoneum: Overall the pancreas appears slightly edematous, though the parenchyma enhances homogeneously without focal pancreatic mass identified. No pancreatic ductal dilatation. There is mild peripancreatic fat stranding, which is greatest about the body, with a trace amount of fluid along Gerota's fascia left. No peripancreatic fluid collection. Aorta and Major Vessels: Moderate mixed atherosclerotic plaque of the infrarenal abdominal aorta with focal eccentric soft plaque along the left aspect of the abdominal aorta. Bowel, Mesentery and Peritoneal space: Small and large bowel loops are normal caliber. There is mild mural edema, minimal periduodenal fluid and adjacent stranding about the second portion of the duodenum. No loculated fluid collection or significant ascites. Pelvis: The urinary bladder is mildly distended. Marked prostate enlargement with indentation of the bladder base. No pelvic lymphadenopathy. Abdominal wall and Osseous Structures: Abdominal wall is intact. No destructive osseous lesions. Procedure Note Interface, Radiant Results - Sat Sep 12, 2016 5:[address] CHEST, ABDOMEN AND PELVIS Clinical Indication: Male, 71 years old. Staging for suspected cholangiocarcinoma malignancy. Status post ERCP with elevated lipase. Technique: Multiple contiguous axial images were obtained through the chest, abdomen and pelvis following the administration of IV contrast material. Post processing coronal and sagittal reconstruction images were made from the axial images. IV contrast: 100 mL Isovue 370. Bowel contrast: None. Comparison: None. CHEST FINDINGS: Lower neck: Unremarkable. Axilla, Mediastinum and Gifty: No thoracic lymphadenopathy. Heart and Great Vessels: Prior median sternotomy and CABG. [place] calcific coronary artery disease. The heart size is normal. Normal caliber thoracic aorta. Airway, Lungs and Pleura: The central airways are patent. Mild bibasilar linear atelectasis and minimal scarring. No pleural effusion. Calcified granulomas are noted in the posterior right lower lobe and in the left upper lobe. No suspicious noncalcified pulmonary nodules identified. Chest Wall and Osseous Structures: No destructive osseous lesions. ABDOMEN AND PELVIS FINDINGS: Liver and Biliary system: The liver is normal in size. Internal biliary stent is in place extending from the common bile duct to the duodenum. Mild intrahepatic bile duct dilation, greatest centrally, with pneumobilia, predominantly involving the left hepatic lobe. Some periportal edema is also present in the liver. Prior cholecystectomy. The portal veins are patent. Spleen: Upper limits of normal in size without focal lesion. Adrenal Glands and Kidneys: The adrenal glands are unremarkable. No renal mass, nephroureterolithiasis or hydronephrosis. Pancreas and Retroperitoneum: Overall the pancreas appears slightly edematous, though the parenchyma enhances homogeneously without focal pancreatic mass identified. No pancreatic ductal dilatation. There is mild peripancreatic fat stranding, which is greatest about the body, with a trace amount of fluid along Gerota's fascia left. No peripancreatic fluid collection. Aorta and Major Vessels: Moderate mixed atherosclerotic plaque of the infrarenal abdominal aorta with focal eccentric soft plaque along the left aspect of the abdominal aorta. Bowel, Mesentery and Peritoneal space: Small and large bowel loops are normal caliber. There is mild mural edema, minimal periduodenal fluid and adjacent stranding about the second portion of the duodenum. No loculated fluid collection or significant ascites. Pelvis: The urinary bladder is mildly distended. Marked prostate enlargement with indentation of the bladder base. No pelvic lymphadenopathy. Abdominal wall and Osseous Structures: Abdominal wall is intact. No destructive osseous lesions. IMPRESSION CHEST: 1. No thoracic lymphadenopathy or evidence of metastatic disease. 2. Calcific coronary artery disease with prior median sternotomy and CABG. ABDOMEN AND PELVIS: 1. Slight enlargement of the pancreas diffusely with mild peripancreatic stranding and minimal fluid consistent with acute pancreatitis. Some mild periportal edema is also present and likely related to acute pancreatitis. 2. Mild intrahepatic bile duct dilation and pneumobilia with internal biliary stent in place. Reported cholangiocarcinoma is not discretely visualized on this exam. 3. Mild mural edema in adjacent stranding about the second portion of the duodenum which is likely secondary to adjacent pancreatic inflammation. 4. Marked prostate enlargement. Preliminary findings were discussed with Gabriel Cartagena MD by phone at 4: 18 AM on 09/12/2016. By my electronic signature, I attest that I have personally reviewed the images for this examination and formulated the interpretations and opinions expressed in this report Finalized by Wilfrid Nguyen M.D. on 09/12/2016 5:19 AM. Dictated by Sujit Valdez M.D. on 09/12/2016 3:[address] ABD/PELV W CONTRAST (09/12/2016 12:24 AM) Impressions CHEST: 1. No thoracic lymphadenopathy or evidence of metastatic disease. 2. Calcific coronary artery disease with prior median sternotomy and CABG. ABDOMEN AND PELVIS: 1. Slight enlargement of the pancreas diffusely with mild peripancreatic stranding and minimal fluid consistent with acute pancreatitis. Some mild periportal edema is also present and likely related to acute pancreatitis. 2. Mild intrahepatic bile duct dilation and pneumobilia with internal biliary stent in place. Reported cholangiocarcinoma is not discretely visualized on this exam. 3. Mild mural edema in adjacent stranding about the second portion of the duodenum which is likely secondary to adjacent pancreatic inflammation. 4. Marked prostate enlargement. Preliminary findings were discussed with Gabriel Cartagena MD by phone at 4: 18 AM on 09/12/2016. By my electronic signature, I attest that I have personally reviewed the images for this examination and formulated the interpretations and opinions expressed in this report Finalized by Wilfrid Nguyen M.D. on 09/12/2016 5:19 AM. Dictated by Sujit Valdez M.D. on 09/12/2016 3:[address] CHEST, ABDOMEN AND PELVIS Clinical Indication:Male, 71 years old. Staging for suspected cholangiocarcinoma malignancy. Status post ERCP with elevated lipase. Technique: Multiple contiguous axial images were obtained through the chest, abdomen and pelvis following the administration of IV contrast material. Post processing coronal and sagittal reconstruction images were made from the axial images. IV contrast: 100 mL Isovue 370. Bowel contrast:None. Comparison: None. CHEST FINDINGS: Lower neck: Unremarkable. Axilla, Mediastinum and Gifty: No thoracic lymphadenopathy. Heart and Great Vessels: Prior median sternotomy and CABG. [place] calcific coronary artery disease. The heart size is normal. Normal caliber thoracic aorta. Airway, Lungs and Pleura: The central airways are patent. Mild bibasilar linear atelectasis and minimal scarring. No pleural effusion. Calcified granulomas are noted in the posterior right lower lobe and in the left upper lobe. No suspicious noncalcified pulmonary nodules identified. Chest Wall and Osseous Structures: No destructive osseous lesions. ABDOMEN AND PELVIS FINDINGS: Liver and Biliary system: The liver is normal in size. Internal biliary stent is in place extending from the common bile duct to the duodenum. Mild intrahepatic bile duct dilation, greatest centrally, with pneumobilia, predominantly involving the left hepatic lobe. Some periportal edema is also present in the liver. Prior cholecystectomy. The portal veins are patent. Spleen: Upper limits of normal in size without focal lesion. Adrenal Glands and Kidneys: The adrenal glands are unremarkable. No renal mass, nephroureterolithiasis or hydronephrosis. Pancreas and Retroperitoneum: Overall the pancreas appears slightly edematous, though the parenchyma enhances homogeneously without focal pancreatic mass identified. No pancreatic ductal dilatation. There is mild peripancreatic fat stranding, which is greatest about the body, with a trace amount of fluid along Gerota's fascia left. No peripancreatic fluid collection. Aorta and Major Vessels: Moderate mixed atherosclerotic plaque of the infrarenal abdominal aorta with focal eccentric soft plaque along the left aspect of the abdominal aorta. Bowel, Mesentery and Peritoneal space: Small and large bowel loops are normal caliber. There is mild mural edema, minimal periduodenal fluid and adjacent stranding about the second portion of the duodenum. No loculated fluid collection or significant ascites. Pelvis: The urinary bladder is mildly distended. Marked prostate enlargement with indentation of the bladder base. No pelvic lymphadenopathy. Abdominal wall and Osseous Structures: Abdominal wall is intact. No destructive osseous lesions. Procedure Note Interface, Radiant Results - Sat Sep 12, 2016 5:[address] CHEST, ABDOMEN AND PELVIS Clinical Indication: Male, 71 years old. Staging for suspected cholangiocarcinoma malignancy. Status post ERCP with elevated lipase. Technique: Multiple contiguous axial images were obtained through the chest, abdomen and pelvis following the administration of IV contrast material. Post processing coronal and sagittal reconstruction images were made from the axial images. IV contrast: 100 mL Isovue 370. Bowel contrast: None. Comparison: None. CHEST FINDINGS: Lower neck: Unremarkable. Axilla, Mediastinum and Gifty: No thoracic lymphadenopathy. Heart and Great Vessels: Prior median sternotomy and CABG. [place] calcific coronary artery disease. The heart size is normal. Normal caliber thoracic aorta. Airway, Lungs and Pleura: The central airways are patent. Mild bibasilar linear atelectasis and minimal scarring. No pleural effusion. Calcified granulomas are noted in the posterior right lower lobe and in the left upper lobe. No suspicious noncalcified pulmonary nodules identified. Chest Wall and Osseous Structures: No destructive osseous lesions. ABDOMEN AND PELVIS FINDINGS: Liver and Biliary system: The liver is normal in size. Internal biliary stent is in place extending from the common bile duct to the duodenum. Mild intrahepatic bile duct dilation, greatest centrally, with pneumobilia, predominantly involving the left hepatic lobe. Some periportal edema is also present in the liver. Prior cholecystectomy. The portal veins are patent. Spleen: Upper limits of normal in size without focal lesion. Adrenal Glands and Kidneys: The adrenal glands are unremarkable. No renal mass, nephroureterolithiasis or hydronephrosis. Pancreas and Retroperitoneum: Overall the pancreas appears slightly edematous, though the parenchyma enhances homogeneously without focal pancreatic mass identified. No pancreatic ductal dilatation. There is mild peripancreatic fat stranding, which is greatest about the body, with a trace amount of fluid along Gerota's fascia left. No peripancreatic fluid collection. Aorta and Major Vessels: Moderate mixed atherosclerotic plaque of the infrarenal abdominal aorta with focal eccentric soft plaque along the left aspect of the abdominal aorta. Bowel, Mesentery and Peritoneal space: Small and large bowel loops are normal caliber. There is mild mural edema, minimal periduodenal fluid and adjacent stranding about the second portion of the duodenum. No loculated fluid collection or significant ascites. Pelvis: The urinary bladder is mildly distended. Marked prostate enlargement with indentation of the bladder base. No pelvic lymphadenopathy. Abdominal wall and Osseous Structures: Abdominal wall is intact. No destructive osseous lesions. IMPRESSION CHEST: 1. No thoracic lymphadenopathy or evidence of metastatic disease. 2. Calcific coronary artery disease with prior median sternotomy and CABG. ABDOMEN AND PELVIS: 1. Slight enlargement of the pancreas diffusely with mild peripancreatic stranding and minimal fluid consistent with acute pancreatitis. Some mild periportal edema is also present and likely related to acute pancreatitis. 2. Mild intrahepatic bile duct dilation and pneumobilia with internal biliary stent in place. Reported cholangiocarcinoma is not discretely visualized on this exam. 3. Mild mural edema in adjacent stranding about the second portion of the duodenum which is likely secondary to adjacent pancreatic inflammation. 4. Marked prostate enlargement. Preliminary findings were discussed with Gabriel Cartagena MD by phone at 4: 18 AM on 09/12/2016. By my electronic signature, I attest that I have personally reviewed the images for this examination and formulated the interpretations and opinions expressed in this report Finalized by Wilfrid Nguyen M.D. on 09/12/2016 5:19 AM. Dictated by Sujit Valdez M.D. on 09/12/2016 3:53 AM. URINALYSIS, MICROSCOPIC (09/11/2016 10:01 PM) Component Value Range WBCs,UA 0-2 0-2 /HPF RBCs,UA 0-2 0-3 /HPF MucousUA 1+ Bacteria,UA FEW (A) NEG-NEG Specimen Urine URINALYSIS DIPSTICK (09/11/2016 10:01 PM) Component Value Range Color,UA LIT Turbidity,UA 1+ (A) CLEAR-CLEAR Specific [place]-Urine 1.017 1.003-1.035 pH,UA 5.0 5.0-8.0 Protein,UA NEG NEG-NEG Glucose,UA NEG NEG-NEG Ketones,UA NEG NEG-NEG Bilirubin,UA POS (A) NEG-NEG Blood,UA NEG NEG-NEG Urobilinogen,UA INCREASED (A) NORM-NORMAL Nitrite,UA NEG NEG-NEG Leukocytes,UA NEG NEG-NEG Urine Ascorbic Acid, UA NEG NEG-NEG Specimen Urine LIPASE (09/11/2016 10:00 PM) Component Value Range Lipase >3000 (H) 11-82 U/L Specimen Blood CA19.9 (09/11/2016 10:00 PM) Component Value Range CA 19-9 201 (H) <35 U/ml Specimen Blood CEA(CARCINOEMBRYONIC AG) (09/11/2016 10:00 PM) Component Value Range CEA 1.5 <3.0 NG/ML Specimen Blood HEPATITIS PANEL, ACUTE (09/11/2016 10:00 PM) Component Value Range Hepatitis A IgM NEG Anti HBc IgM NEG HBsAg NEG Anti HCV NEG Specimen Blood BILIRUBIN, DIRECT (09/11/2016 10:00 PM) Component Value Range Bilirubin, Direct 6.3 (H) <0.4 MG/DL Specimen Blood PROTIME INR (PT) (09/11/2016 10:00 PM) Component Value Range INR 1.2 0.8-1.2 Specimen Blood
[2016-09-22 17:11] LABS: BASOPHILS % (AUTO) 0 % (0-10); EOSINOPHILS # (AUTO) 0.1 10^3/uL (0.0-0.3); EOSINOPHILS % (AUTO) 2 % (0-10); LYMPHOCYTES # (AUTO) 1.6 X 10^3 (1.0-4.0); LYMPHOCYTES % (AUTO) 19 % (12-44); MEAN CORPUSCULAR HEMOGLOBIN 31 PG (25-34); MEAN CORPUSCULAR HGB CONC 34 G/DL (32-36); MEAN CORPUSCULAR VOLUME 92 FL (80-99); MEAN PLATELET VOLUME 11.9 FL (7.4-10.4); MONOCYTES # (AUTO) 0.8 X 10^3 (0.0-1.0); MONOCYTES % (AUTO) 9 % (0-12); NEUTROPHILS # (AUTO) 5.9 X 10^3 (1.8-7.8); NEUTROPHILS % (AUTO) 70 % (42-75); PLATELET COUNT 271 10^3/uL (130-400); RED BLOOD COUNT 3.46 10^6/uL (4.35-5.85); RED CELL DISTRIBUTION WIDTH 14.6 % (10.0-14.5); WHITE BLOOD COUNT 8.4 10^3/uL (4.3-11.0)
[2016-09-22 17:20] LABS: ALANINE AMINOTRANSFERASE 63 U/L (0-55); ALBUMIN 3.1 G/DL (3.2-4.5); ANION GAP 7 MMOL/L (5-14); ASPARTATE AMINO TRANSFERASE 57 U/L (5-34); BILIRUBIN,TOTAL 3.5 MG/DL (0.1-1.0); BLOOD UREA NITROGEN 12 MG/DL (7-18); BUN/CREATININE RATIO 12; CALCIUM 8.4 MG/DL (8.5-10.1); CARBON DIOXIDE 20 MMOL/L (21-32); CHLORIDE 109 MMOL/L (98-107); GFR ESTIMATED > 60; GLUCOSE 91 MG/DL (70-105); SODIUM 136 MMOL/L (135-145); TOTAL PROTEIN 6.3 G/DL (6.4-8.2)
== END ==
LOC: HH 16:57
PROVIDERS: ATTEND Internal Medicine
DX: K83.1 Obstruction of bile duct (principal)
CPT/HCPCS: 80053; 85025

== ENCOUNTER → 2016-09-28 | Outpatient (CLI) | payer MEDICARE ==
--- OUTSIDE RECORDS SUMMARY | 2016-09-28 16:25 | XMS REPORT | Continuity of Care Document ---
Author Author [facility] Organization [facility] Address Unknown Phone Unavailable Care Team Providers Care Homeopathic Doctor Name Role Phone Yassine Garcia PCP Unavailable Source Comments Some departments are not documenting in the electronic medical record. If you do not see the information that you expected, contact Release of Information in the Health Information Management department at [phone] for further assistance in locating additional records.[facility] Active Allergies and Adverse Reactions No [...] Active 25 mg extended release daily. tablet [place]-3 Fatty Take 3 Caps by mouth Active Acids-Vitamin E (FISH daily. OIL) 1,000 mg cap piperacillin/tazobactam Administer 3.375 g 1400 mL 0 09/20/19 (ZOSYN) iso-osmotic IVPB through vein every 6 17 17 hours for 7 days. Active Problems Problem Noted Date Obstructive jaundice 09/11/2016 Diarrhea 09/11/2016 Weight loss 09/11/2016 Transaminitis 09/11/2016 Hyperbilirubinemia 09/11/2016 Most Recent Encounters Date Type Specialty Providers Description 09/25/2016 Surgery Mykel Mooney MD CHOLANGIOPANCREATOGRAPHY ENDOSCOPY RETROGRADE 09/25/2016 Telephone Transplant Surgery Taco Jung MD Other 09/25/2016 [facility] Mykel Mooney MD Common bile duct (CBD) Encounter stricture 09/25/2016 Prep for Case Gastroenterology Maribel Mcneill APRN 09/24/2016 Outpt. Infectious Diseases Virginia Rincon DO Antibiotic Therapy 09/21/2016 Telephone Infectious Diseases Virginia Rincon DO Outpatient Antibiotic Therapy (Opat) 09/18/2016 [facility] Radiology Nataliia Dumas DO Encounter 09/18/2016 Orders Only Transplant Surgery Teo Brooke RN Obstructive jaundice (Primary Dx) 09/18/2016 Telephone General Internal Medicine Nataliia Dumas DO Post Procedure 09/16/2016 [facility] Radiology Clara Patel, TEST CAR DRIVER Encounter Kobi Alvarez, Chester Hernandez MD 09/14/2016 [facility] Radiology Scottie Kan MD Encounter 09/14/2016 Screening Form 09/14/2016 Endo Rslt Enc Self, Referral 09/14/2016 Endo Rslt Enc Self, Referral 09/14/2016 Anesthesia Lottie Garcia, PLATE FILLER Event 09/14/2016 Surgery Mykel Mooney MD ULTRASONOGRAPHY ENDOSCOPY ESOPHAGUS 09/12/2016 Telephone Gastroenterology Deepak Fam MD Error 09/11/2016 Hospital Radiology Gabriel Newberry MD Encounter 09/11/2016 [facility] Nereyda Muhammad MD Obstructive jaundice - Encounter Gabriel Newberry MD 09/20/2016 Nataliia Dumas DO Olyaee, Mojtaba, MD Social History Tobacco Use Types Packs/Day Years Used Date Former Smoker Alcohol Use Drinks/Week oz/Week Comments No 0 Standard 0.0 drinks or equivalent Last Filed Vital Signs Vital Sign Reading Time Taken Blood Pressure 116/59 09/20/2016 3:00 PM BOTTOM PRESSER Pulse 56 09/20/2016 3:00 PM BOTTOM PRESSER Temperature 36.4 C (97.5 F) 09/20/2016 3:00 PM BOTTOM PRESSER Respiratory Rate - - Height 1.778 m (5' 10") 09/15/2016 11:34 AM BOTTOM PRESSER Weight 78.926 kg (174 lb) 09/15/2016 11:34 AM BOTTOM PRESSER Body Mass Index 24.97 09/15/2016 11:34 AM BOTTOM PRESSER Oxygen Saturation 99% 09/20/2016 3:00 PM BOTTOM PRESSER Plan of Care Date Type Specialty Providers Description 10/01/2016 Appointment Radiology Taco Jung MD [address] [place] [address] [phone] (Fax) 10/01/2016 Appointment Transplant Surgery Taco Jung MD [address] [place] [address] [phone] (Fax) 10/01/2016 Appointment Infectious Diseases Virginia Rincon DO [address] [place] [phone] (Fax) 10/01/2016 Appointment Anesthesiology Taco Jung MD [address] [place] [address] [phone] (Fax) 10/01/2016 Appointment Radiology Virginia Rincon DO [address] [place] [phone] (Fax) Health Maintenance Due Date Last Done Comments Physical (Comprehensive) 1950 Exam Pertussis Vaccine 1954 Tetanus Vaccine 1960 Colorectal Cancer 1993 Screening Shingles Vaccine 2003 Prevnar/Pneumovax (#1) 2008 Influenza Vaccine 05/14/2016 Procedures from Last 3 Months Procedure Name Priority Date/Time Associated Diagnosis Comments ECG-SCAN 09/22/2016 Results for this 8:02 AM BOTTOM PRESSER procedure are in the results section. TELEMETRY STRIPS-SCAN 09/22/2016 Results for this 7:18 AM BOTTOM PRESSER procedure are in the results section. CONSULT IV THERAPY TEAM Routine 09/19/2016 1:31 PM BOTTOM PRESSER CONSULT IV THERAPY TEAM Routine 09/16/2016 2:02 PM BOTTOM PRESSER CHOLANGIOPANCREATOGRAPHY 09/14/2016 [place]'s tumor (HCC) ENDOSCOPY RETROGRADE 1:15 PM BOTTOM PRESSER ULTRASONOGRAPHY ENDOSCOPY 09/14/2016 [place]'s tumor (HCC) ESOPHAGUS 1:15 PM BOTTOM PRESSER Results from Last 3 Months ECG-SCAN (09/22/2016 8:02 AM) Narrative Ordered by an unspecified provider. TELEMETRY STRIPS-SCAN (09/22/2016 7:18 AM) Narrative Ordered by an unspecified provider. BUN (09/22/2016) Component Value Range Blood Urea Nitrogen 12 Specimen Blood ALT (SGPT) (09/22/2016) Component Value Range ALT (SGPT) 63 Specimen Blood AST (SGOT) (09/22/2016) Component Value Range AST (SGOT) 57 Specimen Blood POTASSIUM (09/22/2016) Component Value Range Potassium 4.0 Specimen Blood ALK PHOS TOTAL (09/22/2016) Component Value Range Alk Phosphatase 361 Specimen Blood CREATININE (09/22/2016) Component Value Range Creatinine 1.0 Specimen Blood PLATELET COUNT (09/22/2016) Component Value Range Platelet Count 271 Specimen Blood CBC (09/22/2016) Component Value Range White Blood Cells 8.4 Specimen Blood HEMOGLOBIN (09/22/2016) Component Value Range Hemoglobin 10.8 Specimen Blood COMPREHENSIVE METABOLIC PANEL (09/20/2016 4:05 AM)Only the [...] - Sat Sep 19, 2016 8:34 AM BOTTOM PRESSER Ultrasound Doppler of left upper extremity: Clinical [...] Impressions CT-guided transhepatic placement of a 8 [place] pigtail drain into the subhepatic fluid collection/biloma. [...] M.D., Bal George M.D. Technique and Findings: I, Chester Borrego M.D, the attending radiologist, was present for [...] into the fluid collection and a 8 [place] pigtail catheter was advanced into the fluid collection. Approximately 10 ml of fluid was aspirated. The pigtail catheter was sutured in place and connected to a J VAC system. The patient tolerated the procedure well and left the department in unchanged condition. IV medication: 3 mg Versed, 150 mcg fentanyl. Procedure Note Interface, Radiant Results - WedSep 16, 2016 2:[address]-guided drain placement: Clinical Indication: Subhepatic fluid collection/biloma Operators: Chester Borrego M.D., Bal George M.D. Technique and Findings: IChester M.D, the attending radiologist, was present for the critical and irizarry portions of the procedure with a midlevel, resident, and/or fellow participating. Overlapping portions were non irizarry and I was immediately available. I interpret the critical and irizarry portion of [...] into the fluid collection and a 8 [place] pigtail catheter was advanced into the fluid collection. Approximately 10 ml of fluid was aspirated. The pigtail catheter was sutured in place and connected to a J VAC system. The patient tolerated the procedure well and left the department in unchanged condition. IV medication: 3 mg Versed, [address]-guided transhepatic placement of a 8 [place] pigtail drain into the subhepatic fluid collection/biloma. [...] - Tue Sep 15, 2016 11:28 AM BOTTOM PRESSER MRI ABDOMEN AND MRCP Clinical Indication: Male, [...] IV Contrast:Multihance Bowel contrast: None Magnet:1.5 [employer] [employer] Comparison: ERCP September 14, 2016. CT September [...] [place]ras Procedure Date: 09/14/2016 2:48 PM CSN: [id number] Date of : 1945 Gender: Male Attending Physician: Mykel Mooney MD Procedure: ERCP Indications: Ab normal liver function test, suspected biliary mass. Patient is post ERCP with biliary stent and now increasing LFTs. No histological diagnosis . Providers: Mykel Mooney MD (Doctor), Scottie Kan MD (Fellow), Arturo Ceron RN (Nurse), David Hughes Online Journalist (Online Journalist) Referring Physician: Referral Self Medications: Ge neral [...] 9 seconds Procedure Code(s): --- Professional --- 40953, Endoscopic retrograde cholangiopancreatography (ERCP); with placement of endoscopic stent into biliary or pancreatic duct, including pre- and post-dilation and guide wire passage, when performed, including sphincterotomy, when performed, each stent 97532, Endoscopic retrograde cholangiopancreatography (ERCP); with removal of foreign body(s) or stent(s) from biliary/pancreatic duct(s) 28940, Endoscopic retrograde cholangiopancreatography (ERCP); with removal of calculi/debris from biliary/pancreatic duct(s) 93992, Endoscopic retrograde cholangiopancreatography (ERCP); diagnostic, including collection of specimen(s) by brushing or washing, when performed (separate procedure) Diagnosis Code(s): --- Professional --- R94.5, Abnormal results of liver function studies CPT copyright 2015 [employer]. All rights reserved. The codes documented in this report are preliminary and upon programmable logic controller assembler review may be revised to meet current [...] [place] Procedure Date: 09/14/2016 1:19 PM CSN: [id number] Date of : 1945 Gender: Male Attending Physician: Mykel Mooney MD Procedure: Upper EUS Indications: Ab normal liver function test, suspected biliary mass. Patient is post ERCP with biliary stent and now increasing LFTs. No histological diagnosis . Providers: Mykel Mooney MD (Doctor), Scottie Kan MD (Fellow), Arturo Ceron RN (Nurse), David Hughes Online Journalist (Online Journalist) Referring Physician: Referral Self Medications: Pr opofol [...] 45 seconds Procedure Code(s): --- Professional --- 55181, Esophagogastroduodenoscopy, flexible, transoral; with transendoscopic ultrasound-guided intramural or transmural fine needle aspiration/biopsy(s), (includes endoscopic ultrasound examination limited to the esophagus, stomach or duodenum, and adjacent structures) Diagnosis Code(s): --- Professional --- R94.5, Abnormal results of liver function studies CPT copyright 2015 [employer]. All rights reserved. The codes documented in this report are preliminary and upon programmable logic controller assembler review may be revised to meet current [...] 8:48 AM) Component Value Range Cytology [facility] [email or web address] Carla Meyer MD, Director Cytopathology Department of Pathology and Laboratory Medicine [address] [place] [id number] Surgical Pathology Office: [phone] CYTOLOGY REPORT NAME: BEN MENDEZ SURG PATH #: [id number] MR #: [id number] ALT ID #: WALTER #: [id number] LOCATION: [facility] DATE OF PROCEDURE: 09/14/2016 AGE: 71 SEX: M DATE RECEIVED: 09/15/2016 : 1945 TIME RECEIVED: 08:48 PHYSICIAN: MYKEL WHITAKER DATE OF REPORT: 09/17/2016 COPY TO: MD [...] Results - WedSep 14, 2016 11:28 AM BOTTOM PRESSER Chest single view. This is a 71-year-old [...] Great Vessels: Prior median sternotomy and CABG. [place] calcific coronary artery disease. The heart size [...] - Sat Sep 12, 2016 5:[address] CHEST, ABDOMEN AND PELVIS Clinical Indication: [...] Great Vessels: Prior median sternotomy and CABG. [place] calcific coronary artery disease. The heart size [...] Great Vessels: Prior median sternotomy and CABG. [place] calcific coronary artery disease. The heart size [...] - Sat Sep 12, 2016 5:[address] CHEST, ABDOMEN AND PELVIS Clinical Indication: [...] Great Vessels: Prior median sternotomy and CABG. [place] calcific coronary artery disease. The heart size [...] Color,UA LIT Turbidity,UA 1+ (A) CLEAR-CLEAR Specific [place]-Urine 1.017 1.003-1.035 pH,UA 5.0 5.0-8.0 Protein,UA NEG [...]
[2016-09-28 16:29] LABS: BASOPHILS # (AUTO) 0.1 10^3/uL (0.0-0.1); BASOPHILS % (AUTO) 1 % (0-10); EOSINOPHILS # (AUTO) 0.1 10^3/uL (0.0-0.3); EOSINOPHILS % (AUTO) 2 % (0-10); LYMPHOCYTES # (AUTO) 1.2 X 10^3 (1.0-4.0); LYMPHOCYTES % (AUTO) 22 % (12-44); MEAN CORPUSCULAR HEMOGLOBIN 31 PG (25-34); MEAN CORPUSCULAR HGB CONC 34 G/DL (32-36); MEAN CORPUSCULAR VOLUME 93 FL (80-99); MEAN PLATELET VOLUME 12.1 FL (7.4-10.4); MONOCYTES # (AUTO) 0.8 X 10^3 (0.0-1.0); MONOCYTES % (AUTO) 14 % (0-12); NEUTROPHILS # (AUTO) 3.5 X 10^3 (1.8-7.8); NEUTROPHILS % (AUTO) 62 % (42-75); PLATELET COUNT 250 10^3/uL (130-400); RED BLOOD COUNT 3.03 10^6/uL (4.35-5.85); RED CELL DISTRIBUTION WIDTH 14.2 % (10.0-14.5); WHITE BLOOD COUNT 5.6 10^3/uL (4.3-11.0)
[2016-09-28 16:46] LABS: ALANINE AMINOTRANSFERASE 83 U/L (0-55); ALBUMIN 3.3 G/DL (3.2-4.5); ANION GAP 7 MMOL/L (5-14); ASPARTATE AMINO TRANSFERASE 76 U/L (5-34); BILIRUBIN,TOTAL 2.4 MG/DL (0.1-1.0); BLOOD UREA NITROGEN 12 MG/DL (7-18); BUN/CREATININE RATIO 12; CALCIUM 8.9 MG/DL (8.5-10.1); CARBON DIOXIDE 21 MMOL/L (21-32); CHLORIDE 109 MMOL/L (98-107); CREATININE SERUM 1.02 MG/DL (0.60-1.30); GFR ESTIMATED > 60; GLUCOSE 116 MG/DL (70-105); POTASSIUM 3.8 MMOL/L (3.6-5.0); SODIUM 137 MMOL/L (135-145); TOTAL PROTEIN 6.3 G/DL (6.4-8.2)
== END ==
LOC: HH 16:21
PROVIDERS: ATTEND Internal Medicine
DX: K83.1 Obstruction of bile duct (principal)
CPT/HCPCS: 80053; 85025

== ENCOUNTER 2016-10-04 14:58 | Emergency (ER) | payer MEDICARE ==
[~2016-10-04] VITALS: Ht 177.8 cm; Wt 74.8 kg
--- OUTSIDE RECORDS SUMMARY | 2016-10-04 15:04 | XMS REPORT | Continuity of Care Document ---
Author Author [facility] Organization [facility] Address Unknown Phone Unavailable Care Team Providers Care Case Packer Name Role Phone Yassine Garcia PCP Unavailable Source Comments Some departments are not documenting in the electronic medical record. If you do not see the information that you expected, contact Release of Information in the Health Information Management department at [phone] for further assistance in locating additional records.[facility] Active Allergies and Adverse Reactions No Known [...] Active 25 mg extended release daily. tablet Neosho-3 Fatty Take 3 Caps by mouth Active Acids-Vitamin E (FISH daily. OIL) 1,000 mg cap piperacillin/tazobactam Administer 15 mL through 1440 mL 0 09/14/19 10/08/19 Active (ZOSYN) 3.375 g/15 mL vein every 6 hours for 24 17 17 injection days. piperacillin/tazobactam Administer 3.375 g 1400 mL 0 09/20/19 (ZOSYN) iso-osmotic IVPB through vein every 6 17 17 hours for 7 days. 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 Pseudomonas infection 10/01/2016 Obstructive jaundice 09/11/2016 Diarrhea 09/11/2016 Weight loss 09/11/2016 Transaminitis 09/11/2016 Hyperbilirubinemia 09/11/2016 Most Recent Encounters Date Type Specialty Providers Description 11/16[facility]2016 [facility] My[facility] MD Common bile duct (CBD) Encounter stricture 11/09/2016 [facility] Mykel [facility] MD Bile duct abnormality Encounter 10/02/2016 Telephone Gastroenterology Kayli Miner Appointment Request - ERCP 10/01/2016 Hospital Radiology Virginia Rincon DO Arrived Encounter 10/01/2016 Office Visit Infectious Diseases Virginia Rincon DO Extrahepatic biloma (Primary Dx); Pseudomonas infection 10/01/2016 Office Visit Transplant Surgery Taco Jung MD Obstructive jaundice (Primary Dx); Liver cyst; Other intra-abdominal and pelvic swelling, mass and lump 10/01/2016 [facility] Taco Jung MD Arrived Encounter 10/01/2016 Prep for Case Transplant Surgery Teo Brooke RN 10/01/2016 Ancillary Transplant Surgery Taco Jung MD Obstructive jaundice Orders (Primary Dx) 09/30/2016 Screening Form 09/29/2016 Outpt. Infectious Diseases Virginia Rincon DO Antibiotic Therapy 09/29/2016 Telephone Gastroenterology Kayli Miner Appointment Request - ERCP - [facility] 09/25/2016 Telephone Transplant Surgery Taco Jung MD Other 09/25/2016 Prep for Case Gastroenterology Maribel Mcneill APRN 09/24/2016 Outpt. Infectious Diseases Virginia Rincon DO Antibiotic Therapy 09/21/2016 Telephone Infectious Diseases Virginia Rincon DO Outpatient Antibiotic Therapy (Opat) 09/18/2016 Hospital Radiology Nataliia Dumas, Encounter 09/18/2016 Orders Only Transplant Surgery Teo Brooke RN Obstructive jaundice (Primary Dx) 09/18/2016 Telephone General Internal Medicine Nataliia Dumas DO Post Procedure 09/16/2016 Hospital Radiology Clara Patel APRN Encounter Kobi Alvarez RN Lemons, Steven, MD 09/14/2016 [facility] Scottie Kan MD Encounter 09/14/2016 Screening Form 09/14/2016 Endo Rslt Enc Self, Referral 09/14/2016 Endo Rslt Enc Self, Referral 09/14/2016 Anesthesia Lottie Garcia, NUCLEAR STATION OPERATOR Event 09/14/2016 Surgery Mykel Chambers MD ULTRASONOGRAPHY ENDOSCOPY ESOPHAGUS 09/12/2016 Telephone Gastroenterology Deepak Fam MD Error 09/11/2016 [facility] Gabriel Newberry MD Encounter 09/11/2016 [facility] Nereyda Muhammad MD Obstructive jaundice - Encounter Gabriel Newberry MD 09/20/2016 Nataliia Dumas DO Olyaee, Mojtaba, MD Social History Tobacco Use Types Packs/Day Years Used Date Former Smoker 0.5 30 Quit: 10/01/2001 Smokeless Tobacco: Never Used Alcohol Use Drinks/Week oz/Week Comments No 0 Standard 0.0 drinks or equivalent Last Filed Vital Signs Vital Sign Reading Time Taken Blood Pressure 103/58 10/01/2016 3:19 PM LOAD BLOCKER Pulse 59 10/01/2016 3:19 PM LOAD BLOCKER Temperature 36.5 C (97.7 F) 10/01/2016 3:19 PM LOAD BLOCKER Respiratory Rate - - Height 1.778 m (5' 10") 10/01/2016 10:59 AM LOAD BLOCKER Weight 76.658 kg (169 lb) 10/01/2016 10:59 AM LOAD BLOCKER Body Mass Index 24.25 10/01/2016 10:59 AM LOAD BLOCKER Oxygen Saturation 100% 10/01/2016 3:19 PM LOAD BLOCKER Plan of Care Date Type Specialty Providers Description 10/07/2016 Appointment Radiology Virginia Rincon DO [address] [place] [address] [phone] (Fax) 11/09/2016 Surgery Mykel Chambers MD CHOLANGIOPANCREATOGRAPHY [address] [facility] [address] [place] [address] [phone] (Fax) 11/16/2016 Surgery Mykel Chambers MD CHOLANGIOPANCREATOGRAPHY [address] [facility] [address] [place] [address] [phone] (Fax) Health Maintenance Due Date Last Done Comments Physical (Comprehensive) 1952 Exam Pertussis Vaccine 1954 Tetanus Vaccine 1960 Colorectal Cancer 1993 Screening Shingles Vaccine 2003 Prevnar/Pneumovax (#1) 2008 Influenza Vaccine 05/14/2016 Procedures from Last 3 Months Procedure Name Priority Date/Time Associated Diagnosis Comments ECG-SCAN 09/22/2016 Results for this 8:02 AM LOAD BLOCKER procedure are in the results section. TELEMETRY STRIPS-SCAN 09/22/2016 Results for this 7:18 AM LOAD BLOCKER procedure are in the results section. CONSULT IV THERAPY TEAM Routine 09/19/2016 1:31 PM LOAD BLOCKER CONSULT IV THERAPY TEAM Routine 09/16/2016 2:02 PM LOAD BLOCKER CHOLANGIOPANCREATOGRAPHY 09/14/2016 [place]atskin's tumor (HCC) ENDOSCOPY RETROGRADE 1:15 PM LOAD BLOCKER ULTRASONOGRAPHY ENDOSCOPY 09/14/2016 [place]atskin's tumor (HCC) ESOPHAGUS 1:15 PM LOAD BLOCKER Results from Last 3 Months IR ASPIRATION/DRAIN (10/02/2016 4:46 PM)Only the most recent of 2 results within the time period is included. Narrative This IR procedure does not require a dictated result. CT ABD/PELV W CONTRAST (10/01/2016 10:00 AM)Only the most recent of 2 results within the time period is included. Impressions 1.Mild intrahepatic biliary ductal dilatation, improved since the prior exam. A biliary stent is present. Although no definite obstructing mass is noted , repeat EUS/ERCP with tissue sampling is recommended for further evaluation to evaluate for malignancy. 2.No residual fluid collection at the katy hepatis. A percutaneous drainage catheter is present. 3.Improved peripancreatic fluid and fat stranding, consistent with resolving pancreatitis. 4.Slight increase in size of mildly enlarged and upper normal retroperitoneal lymph nodes, which may be reactive. Continued follow-up is recommended. 5.Mild wall thickening of the second portion of the duodenum and ascending colon, likely reactive. 6.Dislodged stent in the descending colon. Finalized by Mar Hernández M.D. on 10/01/2016 11:32 AM. Dictated by Mar Hernández M.D. on 10/01/2016 10:[address] ABDOMEN AND PELVIS Clinical Indication:Male, 71 years old. Obstructive jaundice status post stent placement with negative FNA for malignancy. Concern for cholangiocarcinoma. Technique:Multiple contiguous axial images were obtained through the abdomen and pelvis following the administration of IV contrast material. Hepatic arterial, portal venous and delayed phases were obtained. Post processing coronal and sagittal reconstruction images were made from the axial images. IV contrast: Isovue-370 Bowel contrast:None Comparison: CT 09/11/2016, MRCP 09/15/2016. FINDINGS: Lower Thorax: Cardiac size is within normal limits. There is coronary artery atherosclerosis and postoperative changes from prior CABG. There is subsegmental atelectasis in the lung bases. Liver and Biliary system: The liver is normal in size. There is a wedge-shaped arterial enhancement in the hepatic dome, likely perfusional (series 2, image 15 ). No suspicious intrahepatic mass is noted. The portal and hepatic veins are patent. The gallbladder is surgically absent. A biliary stent is present. There is mild intrahepatic biliary ductal dilatation. There is mild wall thickening of the common bile duct. A percutaneous drainage catheter is located at the katy hepatis. There has been resolution of a previously seen fluid collection. Spleen: The spleen is mildly enlarged. Adrenal Glands and Kidneys: The adrenal glands are unremarkable. There is no hydronephrosis. Pancreas and Retroperitoneum: There is normal enhancement of the pancreas with resolution of peripancreatic fluid. There is no pancreatic ductal dilatation. There are multiple mildly enlarged and upper normal retroperitoneal lymph nodes. A peripancreatic/preaortic node measures 1 cm, previously 0.8 cm (series 2, image 39). A left periaortic node measures 0.8 cm, previously 0.6 cm (series 2, image 48). Aorta and Major Vessels: There is mild mixed plaque aortoiliac atherosclerosis. The aorta is normal in caliber. Bowel, Mesentery and Peritoneal space: There is diffuse wall thickening of the second portion of the duodenum with adjacent inflammation and free fluid. There is mild wall thickening of the ascending colon, likely reactive. There is no bowel obstruction. A biliary stent is dislodged and is located within the descending colon. There is trace ascites. Pelvis: The bladder is moderately distended. There is mild wall thickening. The prostate gland is markedly enlarged. There is no significant pelvic lymphadenopathy. Abdominal wall and Osseous Structures: Median sternotomy wires are intact. There is bilateral gynecomastia. There are mild degenerative changes of the lumbar spine. No aggressive osseous lesions are noted. Procedure Note Interface, Radiant Results - Claudine Oct 01, 2016 11:[address] ABDOMEN AND PELVIS Clinical Indication: Male, 71 years old. Obstructive jaundice status post stent placement with negative FNA for malignancy. Concern for cholangiocarcinoma. Technique: Multiple contiguous axial images were obtained through the abdomen and pelvis following the administration of IV contrast material. Hepatic arterial, portal venous and delayed phases were obtained. Post processing coronal and sagittal reconstruction images were made from the axial images. IV contrast: Isovue-370 Bowel contrast: None Comparison: CT 09/11/2016, MRCP 09/15/2016. FINDINGS: Lower Thorax: Cardiac size is within normal limits. There is coronary artery atherosclerosis and postoperative changes from prior CABG. There is subsegmental atelectasis in the lung bases. Liver and Biliary system: The liver is normal in size. There is a wedge-shaped arterial enhancement in the hepatic dome, likely perfusional (series 2, image 15 ). No suspicious intrahepatic mass is noted. The portal and hepatic veins are patent. The gallbladder is surgically absent. A biliary stent is present. There is mild intrahepatic biliary ductal dilatation. There is mild wall thickening of the common bile duct. A percutaneous drainage catheter is located at the katy hepatis. There has been resolution of a previously seen fluid collection. Spleen: The spleen is mildly enlarged. Adrenal Glands and Kidneys: The adrenal glands are unremarkable. There is no hydronephrosis. Pancreas and Retroperitoneum: There is normal enhancement of the pancreas with resolution of peripancreatic fluid. There is no pancreatic ductal dilatation. There are multiple mildly enlarged and upper normal retroperitoneal lymph nodes. A peripancreatic/preaortic node measures 1 cm, previously 0.8 cm (series 2, image 39). A left periaortic node measures 0.8 cm, previously 0.6 cm (series 2, image 48). Aorta and Major Vessels: There is mild mixed plaque aortoiliac atherosclerosis. The aorta is normal in caliber. Bowel, Mesentery and Peritoneal space: There is diffuse wall thickening of the second portion of the duodenum with adjacent inflammation and free fluid. There is mild wall thickening of the ascending colon, likely reactive. There is no bowel obstruction. A biliary stent is dislodged and is located within the descending colon. There is trace ascites. Pelvis: The bladder is moderately distended. There is mild wall thickening. The prostate gland is markedly enlarged. There is no significant pelvic lymphadenopathy. Abdominal wall and Osseous Structures: Median sternotomy wires are intact. There is bilateral gynecomastia. There are mild degenerative changes of the lumbar spine. No aggressive osseous lesions are noted. IMPRESSION 1. Mild intrahepatic biliary ductal dilatation, improved since the prior exam. A biliary stent is present. Although no definite obstructing mass is noted , repeat EUS/ERCP with tissue sampling is recommended for further evaluation to evaluate for malignancy. 2. No residual fluid collection at the katy hepatis. A percutaneous drainage catheter is present. 3. Improved peripancreatic fluid and fat stranding, consistent with resolving pancreatitis. 4. Slight increase in size of mildly enlarged and upper normal retroperitoneal lymph nodes, which may be reactive. Continued follow-up is recommended. 5. Mild wall thickening of the second portion of the duodenum and ascending colon, likely reactive. 6. Dislodged stent in the descending colon. Finalized by Mar Hernández M.D. on 10/01/2016 11:32 AM. Dictated by Mar Hernández M.D. on 10/01/2016 10:50 AM. BUN (09/28/2016)Only the most recent of 2 results within the time period is included. Component Value Range Blood Urea Nitrogen 12 Specimen Blood ALT (SGPT) (09/28/2016)Only the most recent of 2 results within the time period is included. Component Value Range ALT (SGPT) 83 Specimen Blood AST (SGOT) (09/28/2016)Only the most recent of 2 results within the time period is included. Component Value Range AST (SGOT) 76 Specimen Blood POTASSIUM (09/28/2016)Only the most recent of 2 results within the time period is included. Component Value Range Potassium 3.8 Specimen Blood ALK PHOS TOTAL (09/28/2016)Only the most recent of 2 results within the time period is included. Component Value Range Alk Phosphatase 347 Specimen Blood CREATININE (09/28/2016)Only the most recent of 2 results within the time period is included. Component Value Range Creatinine 1.02 Specimen Blood PLATELET COUNT (09/28/2016)Only the most recent of 2 results within the time period is included. Component Value Range Platelet Count 250 Specimen Blood CBC (09/28/2016)Only the most recent of 2 results within the time period is included. Component Value Range White Blood Cells 5.6 Specimen Blood HEMOGLOBIN (09/28/2016)Only the most recent of 2 results within the time period is included. Component Value Range Hemoglobin 9.5 Specimen Blood ECG-SCAN (09/22/2016 8:02 AM) Narrative Ordered by an unspecified provider. TELEMETRY STRIPS-SCAN (09/22/2016 7:18 AM) Narrative Ordered by an unspecified provider. COMPREHENSIVE METABOLIC PANEL (09/20/2016 4:05 AM)Only the [...] - Sat Sep 19, 2016 8:34 AM LOAD BLOCKER Ultrasound Doppler of left upper extremity: Clinical [...] EDMUNDO MCNEAL M.D. on 09/19/2016 8:[address] GUIDE ABCESS DRAIN W CATH (09/16/2016 10:07 AM) Impressions CT-guided transhepatic placement of a 8 [place] pigtail drain into the subhepatic fluid collection/biloma. [...] into the fluid collection and a 8 [place] pigtail catheter was advanced into the fluid collection. Approximately 10 ml of fluid was aspirated. The pigtail catheter was sutured in place and connected to a J VAC system. The patient tolerated the procedure well and left the department in unchanged condition. IV medication: 3 mg Versed, 150 mcg fentanyl. Procedure Note Interface, Radiant Results - WedSep 16, 2016 2:[address]-guided drain placement: Clinical Indication: Subhepatic fluid [...] into the fluid collection and a 8 [place] pigtail catheter was advanced into the fluid collection. Approximately 10 ml of fluid was aspirated. The pigtail catheter was sutured in place and connected to a J VAC system. The patient tolerated the procedure well and left the department in unchanged condition. IV medication: 3 mg Versed, [address]-guided transhepatic placement of a 8 [place] pigtail drain into the subhepatic fluid collection/biloma. [...] - Tue Sep 15, 2016 11:28 AM LOAD BLOCKER MRI ABDOMEN AND MRCP Clinical Indication: Male, [...] Magnet:1.5 Lamar GE Comparison: ERCP September 14, 2016. CT September [...] Vanessa Contreras Procedure Date: 09/14/2016 2:48 PM [facility]: [id number] Date of : 1945 Gender: Male Attending Physician: Mykel Chambers MD Procedure: ERCP Indications: Ab normal liver function test, suspected biliary mass. Patient is post ERCP with biliary stent and now increasing LFTs. No histological diagnosis . Providers: Mykel Chambers MD (Doctor), Scottie Kan MD (Fellow), Arturo Ceron RN (Nurse), [facility], [facility] ([facility]icians [facility] Surgeons) Referring Physician: Referral Self Medications: Ge neral [...] 9 seconds Procedure Code(s): --- Professional --- 69470, Endoscopic retrograde cholangiopancreatography (ERCP); with placement of endoscopic stent into biliary or pancreatic duct, including pre- and post-dilation and guide wire passage, when performed, including sphincterotomy, when performed, each stent 28188, Endoscopic retrograde cholangiopancreatography (ERCP); with removal of foreign body(s) or stent(s) from biliary/pancreatic duct(s) 16594, Endoscopic retrograde cholangiopancreatography (ERCP); with removal of calculi/debris from biliary/pancreatic duct(s) 36438, Endoscopic retrograde cholangiopancreatography (ERCP); diagnostic, including collection of specimen(s) by brushing or washing, when performed (separate procedure) Diagnosis Code(s): --- Professional --- R94.5, Abnormal results of liver function studies CPT copyright 2015 [employer]. All rights reserved. The codes documented in this report are preliminary and upon steamer gum candy review may be revised to meet current [...] Contreras Procedure Date: 09/14/2016 1:19 PM CSN: [id number] Date of : 1945 Gender: Male Attending Physician: Mykel Chambers MD Procedure: Upper EUS Indications: Ab normal liver function test, suspected biliary mass. Patient is post ERCP with biliary stent and now increasing LFTs. No histological diagnosis . Providers: Mykel Chambers MD (Doctor), Scottie Kan MD (Fellow), Arturo Ceron RN (Nurse), [facility] ([facility]) Referring Physician: Referral Self Medications: Pr opofol [...] 45 seconds Procedure Code(s): --- Professional --- 48551, Esophagogastroduodenoscopy, flexible, transoral; with transendoscopic ultrasound-guided intramural or transmural fine needle aspiration/biopsy(s), (includes endoscopic ultrasound examination limited to the esophagus, stomach or duodenum, and adjacent structures) Diagnosis Code(s): --- Professional --- R94.5, Abnormal results of liver function studies CPT copyright 2015 [employer]. All rights reserved. The codes documented in this report are preliminary and upon steamer gum candy review may be revised to meet current [...] 8:48 AM) Component Value Range Cytology [facility] [email or web address] Carla Meyer MD, Director Cytopathology Department of Pathology and Laboratory Medicine [address] [place] [id number] Surgical Pathology Office: [phone] CYTOLOGY REPORT NAME: BEN MENDEZ SURG PATH #: [id number] MR #: [id number] ALT ID #: [id number] #: [id number] LOCATION: [facility] DATE OF PROCEDURE: 09/14/2016 AGE: 71 SEX: M DATE RECEIVED: 09/15/2016 : 1945 TIME RECEIVED: 08:48 PHYSICIAN: MYKEL CHAMBERS Amie DATE OF REPORT: 09/17/2016 COPY TO: MD [...] Results - WedSep 14, 2016 11:28 AM LOAD BLOCKER Chest single view. This is a 71-year-old [...] Great Vessels: Prior median sternotomy and CABG. [place] calcific coronary artery disease. The heart size [...] - Sat Sep 12, 2016 5:[address] CHEST, ABDOMEN AND PELVIS Clinical Indication: [...] Great Vessels: Prior median sternotomy and CABG. [place] calcific coronary artery disease. The heart size [...] Color,UA LIT Turbidity,UA 1+ (A) CLEAR-CLEAR Specific Dickinson-Urine 1.017 1.003-1.035 pH,UA 5.0 5.0-8.0 Protein,UA NEG [...]
--- NOTE | 2016-10-04 16:09 | ED General ---
General Chief Complaint: General Problems/Pain Stated Complaint: CLOGGED PICC LINE Nursing Triage Note: AMBLATED TO ROOM 08 WITH COMPLAINTS OF PICC LINE RIGHT UPPER ARM BEING CLOGGED. WAS SENT OUT HERE BY HOME HEALTH WHO HAS ATTEMPTED TO UNCLOG LINE. PT RECIEVES CONT ANTIBIOTICS (PIPERCILLIN) THRU LINE AND HIS NEXT APPT AT IS ON WED. Nursing Sepsis Screen: No Definite Risk Source of Information: Patient, Spouse Exam Limitations: No Limitations History of Present Illness Time Seen by Provider: 16:09 Initial Comments 71-year-old male patient presents to the emergency department complaints of a clogged PICC line. Patient states yesterday he was having difficulty flushing and aspirating the PICC line. Today home healthcare attempted to aspirate and flush the line without success. Patient is on continuous Pipercillin. He sees [facility] on Wednesday. Timing/Duration: 12-24 Hours Modifying Factors: worse with Other (unable to flush or aspirate the PICC line. ) Allergies and Home Medications Allergies Coded Allergies: No Known Drug Allergies (Unverified , 02/07/16) Home Medications Aspirin 81 Mg Tabec 81 MG PO DAILY (Reported) Clopidogrel Bisulfate 75 Mg Tablet 75 MG PO DAILY (Reported) Finasteride 5 Mg Tablet 5 MG PO DAILY (Reported) Hydrocodone/Acetaminophen 1 Each Tablet #30 1 EACH PO Q4H PRN PRN PAIN Prescribed by: JIMENA BRADLEY on 02/12/16 0916 Lisinopril 20 Mg Tablet 10 MG PO DAILY (Reported) TAKES 1/2 OF A (20 MG) TABLET Metoprolol Succinate 25 Mg Tab.er.24h 25 MG PO HS (Reported) [place] 3 Polyunsat Fatty Acids 1,000 Mg Cap 1,000 MG PO BID WITH MEALS (Reported ) Tamsulosin HCl 0.4 Mg Cap.er.24h 0.4 MG PO HS (Reported) Constitutional: No chills, No fever, No malaise Respiratory: no symptoms reported Cardiovascular: no symptoms reported Gastrointestinal: no symptoms reported Musculoskeletal: see HPINo joint pain, No joint swelling, other ( malfunctioning PICC line) Skin: No change in color, No lesions, No lumps, No rash Psychiatric/Neurological: No Symptoms Reported All Other Systems Reviewed Negative Unless Noted: Yes (Negative excepted noted.) Past Tmxiclf-Bgonia-Mvntvj Hx Patient Social History Former Smoker/When Quit: Nov 15, 2001 Recent Foreign Travel: No Contact w/Someone Who Travel: No Recent Infectious Disease Expo: No Recent Hopitalizations: No Immunizations Up To Date Tetanus Booster (TDap): More than 5yrs PED Vaccines UTD: Yes Date of Pneumonia Vaccine: Jul 30, 2015 Date of Influenza Vaccine: Jun 28, 2015 Surgeries HX Surgeries: Yes (BYPASS SURGERY 2001, STENTS/ANGIOPLASTY 12/27) Surgeries: Appendectomy, CABG Respiratory Hx Respiratory Disorders: No Cardiovascular Hx Cardiac Disorders: Yes (QUAD BYPASS, HX WI X2, STENTS/ANGIOPLASTY 12/27) Cardiac Disorders: High Cholesterol, Hypertension Neurological Hx Neurological Disorders: No Reproductive System Hx Reproductive Disorders: No Sexually Transmitted Disease: No HIV/AIDS: No Genitourinary Hx Genitourinary Disorders: Yes (enlarged prostate ) Genitourinary Disorders: Prostate Problems Gastrointestinal Hx Gastrointestinal Disorders: Yes Gastrointestinal Disorders: Gastroesophageal Reflux, Polyps Musculoskeletal Hx Musculoskeletal Disorders: No Endocrine Hx Endocrine Disorders: No HEENT HX ENT Disorders: Yes (GLASSES) Loss of Vision: Bilateral Hearing Impairment: Denies Cancer Hx Cancer: No Psychosocial Hx Psychiatric Problems: No Integumentary HX Skin/Integumentary Disorder: No Blood Transfusions Hx Blood Disorders: No Adverse Reaction to a Blood Tr: No (HAS HAD BLOOD WITH NO REACTION) Reviewed Nursing Assessment Reviewed/Agree w Nursing PMH: Yes Family Medical History Significant Family History: No Pertinent Family Hx Family Medial History: Cardiovascular disease 19 FATHER FH: uterine cancer 19 MOTHER Myocardial infarction 19 FATHER Physical Exam Vital Signs Vital Sign - Last 12Hours 10/04/16 15:30 Temp 98.0 Pulse 60 Resp 18 B/P 121/66 Pulse Ox 100 Capillary Refill : Less Than 3 Seconds General Appearance: No Apparent Distress WD/WN Respiratory: Lungs Clear Normal Breath Sounds No Respiratory Distress Cardiovascular: Regular Rate, Rhythm No Murmur Normal Peripheral Pulses Extremity: Normal Capillary Refill Normal Inspection (PICC line noted in the right medial bicep without erythema, warmth, swelling, or drainage. Unable to aspirate or flush the PICC line at the time of exam.) Non Tender Neurologic/Psychiatric: Alert Oriented x3 Normal Mood/Affect Skin: Normal Color Warm/Dry Other (PICC line noted in the right medial bicep without erythema, warmth, swelling, or drainage. Unable to aspirate or flush the PICC line at the time of exam.) Additional Procedures : Progress 1700 0.5 ml activase infused into the PICC line. Will attempt to aspirate the PICC line in 30 minutes. 1737 unable to aspirate the PICC line. 1 ml of activase was infused. Will attempt to aspirate the PICC line in 30 minutes. 1835 10 cc blood aspirated from the PICC line. Flushed with 15 cc saline. PICC line is still sluggish. 2 ml of activase infused into the line w/o difficulty. Will attempt to aspirate and flush line in 30 minutes. 1858 10 cc of blood aspirated from the PICC line followed by infusion of 20 cc NS w/o difficulty. Patient tolerated the procedure well. Progress/Results/Core Measures Results/Orders My Orders Orders-AURORA WINN Alteplase (Cathflo) Injection (Cathflo (10/04/16 16:15) Alteplase (Cathflo) Injection (Cathflo (10/04/16 18:30) Medications Given in ED Current Medications Medications Dose Ordered Sig/Lenora Route Start Time Stop Time Status Last Admin Dose Admin Alteplase, Recombinant 2 mg ONCE ONCE IV 10/04/16 16:15 10/04/16 16:16 DC 10/04/16 16:57 2 MG Alteplase, Recombinant 2 mg ONCE ONCE IV 10/04/16 18:30 10/04/16 18:31 DC 10/04/16 18:36 2 MG Vital Signs/I&O Vital Sign - Last 12Hours 10/04/16 15:30 Temp 98.0 Pulse 60 Resp 18 B/P 121/66 Pulse Ox 100 Blood Pressure Mean: 84 Departure Communication Progress Notes Patient seen and evaluated. Procedure note above. Patient advised to continue antibiotics confusion and PICC line care as instructed by his physician at [facility]. Patient instructed to contact their office tomorrow morning to notify them of the ED visit. Patient is instructed follow-up on Wednesday as previously scheduled at [facility]. All return precautions were discussed with the patient as described in the discharge instructions of this report. Patient voices understanding and agrees with the treatment plan. Impression Impression: Primary Impression: Occluded PICC line Qualified Code: T82.898A - Other specified complication of vascular prosthetic devices, implants and grafts, initial encounter Disposition: HOME, SELF-CARE Condition: Improved Departure-Patient Inst. Decision time for Depature: 19:00 Referrals: APOLINAR MUNOZ DO (PCP/Family) Primary Care Physician Patient Instructions: NO INSTRUCTIONS GIVEN Add. Discharge Instructions: All discharge instructions reviewed with patient and/or family. Voiced understanding. Continue usual home medications. Continue usual PICC line care. Follow-up with [facility] on Wednesday as previously scheduled. Return to the emergency department immediately for occluded catheter, fever, redness, or any other concerns. AURORA WINN Oct 04, 2016 16:09 AURORA WINN Oct 04, 2016 16:09
[2016-10-04] MEDS ORDERED: ALTEPLASE 2 MG (CATHFLO) IV ONE ×2 (16:15→18:30)
[2016-10-04 19:05] VITALS: BP 0/0
== END 2016-10-04 19:11 | disposition home or self-care (01) ==
LOC: EDUNIT# 14:58 → ER 14:59
DX: T82.514A Breakdown (mechanical) of infusion catheter, initial encounter (principal); I10 Essential (primary) hypertension; Z79.2 Long term (current) use of antibiotics; Z79.02 Long term (current) use of antithrombotics/antiplatelets; Z79.82 Long term (current) use of aspirin; Z79.899 Other long term (current) drug therapy; Z95.1 Presence of aortocoronary bypass graft
CPT/HCPCS: 96374; 96376; 99281

== ENCOUNTER → 2016-10-05 | Outpatient (CLI) | payer MEDICARE ==
--- OUTSIDE RECORDS SUMMARY | 2016-10-05 11:20 | XMS REPORT | Continuity of Care Document ---
Author Author [facility] Organization [facility] Address Unknown Phone Unavailable Care Team Providers Care Res Counselor Name Role Phone Yassine Garcia PCP Unavailable Source Comments Some departments are not documenting in the electronic medical record. If you do not see the information that you expected, contact Release of Information in the Health Information Management department at [phone] for further assistance in locating additional records.[facility] Active Allergies and Adverse Reactions [...] Active 25 mg extended release daily. tablet [place]-3 Fatty Take 3 Caps by mouth Active [...] Encounters Date Type Specialty Providers Description 11/16/2016 [facility] Mykel Mooney MD Common bile duct (CBD) Encounter stricture 11/09/2016 [facility] Mykel Mooney MD Bile duct abnormality Encounter 10/02/2016 Telephone Gastroenterology Kayli Miner Appointment Request - ERCP 10/01/2016 Hospital Radiology Virginia Rincon DO Arrived Encounter 10/01/2016 Office Visit Infectious Diseases Virginia Rincon DO Extrahepatic biloma (Primary Dx); Pseudomonas infection 10/01/2016 Office Visit Transplant Surgery Taco Jung MD Obstructive jaundice (Primary Dx); Liver cyst; Other intra-abdominal and pelvic swelling, mass and lump 10/01/2016 [facility] Radiology Taco Jung MD Arrived Encounter 10/01/2016 Prep for Case Transplant Surgery Teo Brooke RN 10/01/2016 Ancillary Transplant Surgery Taco Jung MD Obstructive jaundice Orders (Primary Dx) 09/30/2016 Screening Form 09/29/2016 Outpt. Infectious Diseases Virginia Rincon DO Antibiotic Therapy 09/29/2016 Telephone Gastroenterology Kayli Miner Appointment Request - ERCP - [facility] 09/25/2016 Telephone Transplant Surgery Taco Jung MD [...] Kobi Alvarez RN Lemons, Steven, MD 09/14/2016 [facility] Radiology Scottie Kan MD Encounter 09/14/2016 Screening Form 09/14/2016 Endo Rslt Enc Self, Referral 09/14/2016 Endo Rslt Enc Self, Referral 09/14/2016 Anesthesia Lottie Garcia, CORN GRINDER Event 09/14/2016 Surgery Mykel Mooney MD ULTRASONOGRAPHY ENDOSCOPY ESOPHAGUS 09/12/2016 Telephone Gastroenterology Deepak Fam MD Error 09/11/2016 [facility] Radiology Gabriel Newberry MD Encounter 09/11/2016 [facility] Nereyda Muhammad MD Obstructive jaundice - [...] Taken Blood Pressure 103/58 10/01/2016 3:19 PM CIRC[facility] STUFFER Pulse 59 10/01/2016 3:19 PM [facility] STUFFER Temperature 36.5 C (97.7 F) 10/01/2016 3:19 PM [facility] STUFFER Respiratory Rate - - Height 1.778 m (5' 10") 10/01/2016 10:59 AM [facility] STUFFER Weight 76.658 kg (169 lb) 10/01/2016 10:59 AM [facility] STUFFER Body Mass Index 24.25 10/01/2016 10:59 AM [facility] STUFFER Oxygen Saturation 100% 10/01/2016 3:19 PM [facility] STUFFER Plan of Care Date Type Specialty Providers Description 10/07/2016 Appointment Radiology Virginia Rincon DO [address] [place] [address] [phone] (Fax) 11/09/2016 Surgery Mykel Mooney MD CHOLANGIOPANCREATOGRAPHY [address] [facility] [address] [id number] [phone] (Fax) 11/16/2016 Surgery Mykel Mooney MD Canceled [address] CHOLANGIOPANCREATOGRAPHY [place] [address] END[address] [place] [address] [phone] (Fax) Health Maintenance Due Date Last Done Comments Physical (Comprehensive) 1950 Exam Pertussis Vaccine 1954 Tetanus Vaccine 1960 Colorectal Cancer 1993 Screening Shingles Vaccine 2003 Prevnar/Pneumovax (#1) 2008 Influenza Vaccine 05/14/2016 Procedures from Last 3 Months Procedure Name Priority Date/Time Associated Diagnosis Comments ECG-SCAN 09/22/2016 Results for this 8:02 AM CIRC[facility] STUFFER procedure are in the results section. TELEMETRY STRIPS-SCAN 09/22/2016 Results for this 7:18 AM CIRC[facility] STUFFER procedure are in the results section. CONSULT IV THERAPY TEAM Routine 09/19/2016 1:31 PM [facility] STUFFER CONSULT IV THERAPY TEAM Routine 09/16/2016 2:02 PM [facility] STUFFER CHOLANGIOPANCREATOGRAPHY 09/14/2016 [place]kin's tumor (HCC) ENDOSCOPY RETROGRADE 1:15 PM CIRCULAR STUFFER ULTRASONOGRAPHY ENDOSCOPY 09/14/2016 [place]atskin's tumor (HCC) ESOPHAGUS 1:15 PM [facility] STUFFER Results from Last 3 Months IR ASPIRATION/DRAIN [...] - Claudine Oct 01, 2016 11:[address] ABDOMEN AND PELVIS Clinical Indication: Male, [...] - Sat Sep 19, 2016 8:34 AM CIRCULAR STUFFER Ultrasound Doppler of left upper extremity: Clinical [...] Impressions CT-guided transhepatic placement of a 8 [place] pigtail drain into the subhepatic fluid collection/biloma. [...] into the fluid collection and a 8 [place] pigtail catheter was advanced into the fluid collection. Approximately 10 ml of fluid was aspirated. The pigtail catheter was sutured in place and connected to a J VAC system. The patient tolerated the procedure well and left the department in unchanged condition. IV medication: 3 mg Versed, 150 mcg fentanyl. Procedure Note Interface, Radiant Results - WedSep 16, 2016 2:[address]-guided drain placement: Clinical Indication: Subhepatic fluid [...] into the fluid collection and a 8 [place] pigtail catheter was advanced into the fluid collection. Approximately 10 ml of fluid was aspirated. The pigtail catheter was sutured in place and connected to a J VAC system. The patient tolerated the procedure well and left the department in unchanged condition. IV medication: 3 mg Versed, [address]-guided transhepatic placement of a 8 [place] pigtail drain into the subhepatic fluid collection/biloma. [...] - Tue Sep 15, 2016 11:28 AM CIRCULAR STUFFER MRI ABDOMEN AND MRCP Clinical Indication: Male, [...] Contreras Procedure Date: 09/14/2016 2:48 PM CSN: [id number] Date of : 1945 Gender: Male Attending Physician: Mykel Mooney MD Procedure: ERCP Indications: Ab normal liver function test, suspected biliary mass. Patient is post ERCP with biliary stent and now increasing LFTs. No histological diagnosis . Providers: Mykel Mooney MD (Doctor), Scottie Kan MD (Fellow), Arturo Ceron RN (Nurse), David Hughes, Resource Management Specialist (Resource Management Specialist) Referring Physician: Referral Self Medications: Ge neral [...] 9 seconds Procedure Code(s): --- Professional --- 33933, Endoscopic retrograde cholangiopancreatography (ERCP); with placement of endoscopic stent into biliary or pancreatic duct, including pre- and post-dilation and guide wire passage, when performed, including sphincterotomy, when performed, each stent 80187, Endoscopic retrograde cholangiopancreatography (ERCP); with removal of foreign body(s) or stent(s) from biliary/pancreatic duct(s) 98591, Endoscopic retrograde cholangiopancreatography (ERCP); with removal of calculi/debris from biliary/pancreatic duct(s) 78150, Endoscopic retrograde cholangiopancreatography (ERCP); diagnostic, including collection of specimen(s) by brushing or washing, when performed (separate procedure) Diagnosis Code(s): --- Professional --- R94.5, Abnormal results of liver function studies CPT copyright 2015 [employer]. All rights reserved. The codes documented in this report are preliminary and upon reference library assistant review may be revised to meet current [...] Contreras Procedure Date: 09/14/2016 1:19 PM CSN: [id number] Date of : 1945 Gender: Male Attending Physician: Mykel Mooney MD Procedure: Upper EUS Indications: Ab normal liver function test, suspected biliary mass. Patient is post ERCP with biliary stent and now increasing LFTs. No histological diagnosis . Providers: Mykel Mooney MD (Doctor), Scottie Kan MD (Fellow), Arturo Ceron RN (Nurse), David Hughes, Resource Management Specialist (Resource Management Specialist) Referring Physician: Referral Self Medications: Pr opofol [...] 45 seconds Procedure Code(s): --- Professional --- 70832, Esophagogastroduodenoscopy, flexible, transoral; with transendoscopic ultrasound-guided intramural or transmural fine needle aspiration/biopsy(s), (includes endoscopic ultrasound examination limited to the esophagus, stomach or duodenum, and adjacent structures) Diagnosis Code(s): --- Professional --- R94.5, Abnormal results of liver function studies CPT copyright 2015 [employer]. All rights reserved. The codes documented in this report are preliminary and upon reference library assistant review may be revised to meet current [...] 8:48 AM) Component Value Range Cytology [facility] [email or web address] Carla Meyer MD, Director Cytopathology Department of Pathology and Laboratory Medicine [address] [place] [phone] Surgical Pathology Office: [phone] CYTOLOGY REPORT NAME: BEN MENDEZ SURG PATH #: [id number] MR #: [id number] ALT ID #: BILLING #: [id number] LOCATION: [facility] DATE OF PROCEDURE: 09/14/2016 AGE: 71 [...] Results - WedSep 14, 2016 11:28 AM CIRCULAR STUFFER Chest single view. This is a 71-year-old [...] Great Vessels: Prior median sternotomy and CABG. [place] calcific coronary artery disease. The heart size [...] - Sat Sep 12, 2016 5:[address] CHEST, ABDOMEN AND PELVIS Clinical Indication: [...] Great Vessels: Prior median sternotomy and CABG. [place] calcific coronary artery disease. The heart size [...] Color,UA LIT Turbidity,UA 1+ (A) CLEAR-CLEAR Specific [place]-Urine 1.017 1.003-1.035 pH,UA 5.0 5.0-8.0 Protein,UA NEG [...]
[2016-10-05 11:21] LABS: BASOPHILS % (AUTO) 1 % (0-10); EOSINOPHILS # (AUTO) 0.1 10^3/uL (0.0-0.3); EOSINOPHILS % (AUTO) 3 % (0-10); LYMPHOCYTES # (AUTO) 0.8 X 10^3 (1.0-4.0); LYMPHOCYTES % (AUTO) 29 % (12-44); MEAN CORPUSCULAR HEMOGLOBIN 32 PG (25-34); MEAN CORPUSCULAR HGB CONC 34 G/DL (32-36); MEAN CORPUSCULAR VOLUME 94 FL (80-99); MEAN PLATELET VOLUME 10.9 FL (7.4-10.4); MONOCYTES # (AUTO) 0.4 X 10^3 (0.0-1.0); MONOCYTES % (AUTO) 14 % (0-12); NEUTROPHILS # (AUTO) 1.5 X 10^3 (1.8-7.8); NEUTROPHILS % (AUTO) 53 % (42-75); PLATELET COUNT 194 10^3/uL (130-400); RED BLOOD COUNT 3.01 10^6/uL (4.35-5.85); RED CELL DISTRIBUTION WIDTH 14.9 % (10.0-14.5); WHITE BLOOD COUNT 2.8 10^3/uL (4.3-11.0)
[2016-10-05 11:41] LABS: ALANINE AMINOTRANSFERASE 54 U/L (0-55); ALBUMIN 3.4 G/DL (3.2-4.5); ANION GAP 9 MMOL/L (5-14); ASPARTATE AMINO TRANSFERASE 53 U/L (5-34); BILIRUBIN,TOTAL 1.9 MG/DL (0.1-1.0); BLOOD UREA NITROGEN 11 MG/DL (7-18); BUN/CREATININE RATIO 11; CALCIUM 8.7 MG/DL (8.5-10.1); CARBON DIOXIDE 20 MMOL/L (21-32); CHLORIDE 108 MMOL/L (98-107); CREATININE SERUM 1.03 MG/DL (0.60-1.30); GFR ESTIMATED > 60; GLUCOSE 101 MG/DL (70-105); POTASSIUM 3.8 MMOL/L (3.6-5.0); SODIUM 137 MMOL/L (135-145); TOTAL PROTEIN 6.1 G/DL (6.4-8.2)
== END ==
LOC: HH 11:15
PROVIDERS: ATTEND Internal Medicine
DX: K83.1 Obstruction of bile duct (principal)
CPT/HCPCS: 80053; 85025

== ENCOUNTER 2016-10-12 17:24 | Emergency (ER) | payer MEDICARE ==
[~2016-10-12] VITALS: Ht 177.8 cm; Wt 73.1 kg
--- OUTSIDE RECORDS SUMMARY | 2016-10-12 17:31 | XMS REPORT | Continuity of Care Document ---
Author Author [facility] Organization [facility] Address Unknown Phone Unavailable Care Team Providers Care Change Analyst Name Role Phone Yassine Garcia PCP Unavailable Source Comments Some departments are not documenting in the electronic medical record. If you do not see the information that you expected, contact Release of Information in the Health Information Management department at [phone] for further assistance in locating additional records.[facility] Active Allergies and Adverse Reactions [...] Active 25 mg extended release daily. tablet Ruston-3 Fatty Take 3 Caps by mouth Active [...] Encounters Date Type Specialty Providers Description 11/16/2016 [facility] Mykel Mooney MD Common bile duct (CBD) Encounter stricture 11/09/2016 [facility] Mykel Mooney MD Bile duct abnormality Encounter 10/12/2016 Outpt. Infectious Diseases Virginia Rincon DO Antibiotic Therapy 10/12/2016 Telephone Infectious Diseases Virginia Rincon DO Outpatient Antibiotic Therapy (Opat) 10/12/2016 Documentation Transplant Surgery Taco Jung MD 10/08/2016 Telephone Infectious Diseases Virginia Rincon DO Outpatient Antibiotic Therapy (Opat) 10/07/2016 Hospital Radiology Virginia Rincon DO Arrived Encounter 10/06/2016 Outpt. Infectious Virginia Davis, DO Antibiotic Therapy 10/02/2016 Telephone GastroenterKayli Laureano Appointment Request - ERCP 10/01/2016 Hospital Radiology Virginia Rincon DO Encounter 10/01/2016 Office Visit Infectious Diseases Virginia Rincon DO Extrahepatic biloma (Primary Dx); Pseudomonas infection 10/01/2016 Office Visit Transplant Surgery Taco Jung MD Obstructive jaundice (Primary Dx); Liver cyst; Other intra-abdominal and pelvic swelling, mass and lump 10/01/2016 Hospital Radiology Taco Jung MD Encounter 10/01/2016 Prep for Case Transplant Surgery Teo Brooke, ALEJANDRA 10/01/2016 Ancillary Transplant Surgery Taco Jung MD Obstructive jaundice Orders (Primary Dx) 09/30/2016 Screening Form 09/29/2016 Outpt. Infectious Diseases Virginia Rincon DO Antibiotic Therapy 09/29/2016 Telephone Gastroenterology Kayli Miner Appointment Request - ERCP - [facility] 09/25/2016 Telephone Transplant Surgery Taco Jung MD Other 09/25/2016 Prep for Case Gastroenterology Quin[place]-Maribel Myers APRN 09/24/2016 Outpt. Infectious Diseases Virginia Rincon, Antibiotic Therapy 09/21/2016 Telephone Infectious Diseases Virginia Rincon DO Outpatient Antibiotic Therapy (Opat) 09/18/2016 [facility] Radiology aNtaliia Dumas, Encounter 09/18/2016 Orders Only Transplant Surgery Teo Brooke RN Obstructive jaundice (Primary Dx) 09/18/2016 Telephone General Internal Medicine Nataliia Dumas DO Post Procedure 09/16/2016 [facility] Radiology Clara Patel APRN Encounter Kobi Alvarez RN Lemons, Steven, MD 09/14/2016 [facility] Radiology Scottie Kan MD Encounter 09/14/2016 Screening Form 09/14/2016 Endo Rslt Enc Self, Referral 09/14/2016 Endo Rslt Enc Self, Referral 09/14/2016 Anesthesia Lottie Garcia, GEOGRAPHIC INFORMATION SYSTEM SURVEYOR Event 09/14/2016 Surgery Mykel Mooney MD ULTRASONOGRAPHY ENDOSCOPY ESOPHAGUS 09/12/2016 Telephone Gastroenterology Deepak Fam MD Error 09/11/2016 [facility] Radiology Gabriel Newberry MD Encounter 09/11/2016 [facility] Nereyda Muhammad MD Obstructive jaundice - [...] Taken Blood Pressure 112/69 10/07/2016 12:30 PM SUPPLY CHAIN GENERALIST Pulse 61 10/07/2016 12:30 PM SUPPLY CHAIN GENERALIST Temperature 36.5 C (97.7 F) 10/01/2016 3:19 PM SUPPLY CHAIN GENERALIST Respiratory Rate - - Height 1.778 m (5' 10") 10/01/2016 10:59 AM SUPPLY CHAIN GENERALIST Weight 76.658 kg (169 lb) 10/01/2016 10:59 AM SUPPLY CHAIN GENERALIST Body Mass Index 24.25 10/01/2016 10:59 AM SUPPLY CHAIN GENERALIST Oxygen Saturation 100% 10/07/2016 12:30 PM SUPPLY CHAIN GENERALIST Plan of Care Date Type Specialty Providers Description 11/09/2016 Surgery Mykel Mooney MD CHOLANGIOPANCREATOGRAPHY [address] ENDOSCOPY [address] [place] [address] [phone] (Fax) 11/16/2016 Surgery Mykel Mooney MD Canceled [address] CHOLANGIOPANCREATOGRAPHY [address] [place] [address] [phone] (Fax) 11/19/2016 Appointment Radiology Taco Jung MD [address] [place] [address] [phone] (Fax) 11/19/2016 Appointment Transplant Surgery Taco Jung MD [address] [place] [address] [phone] (Fax) Health Maintenance Due Date Last Done Comments Physical (Comprehensive) 1950 Exam Pertussis Vaccine 1954 Tetanus Vaccine 1960 Colorectal Cancer 1993 Screening Shingles Vaccine 2003 Prevnar/Pneumovax (#1) 2008 Influenza Vaccine 05/14/2016 Procedures from Last 3 Months Procedure Name Priority Date/Time Associated Diagnosis Comments ECG-SCAN 09/22/2016 Results for this 8:02 AM SUPPLY CHAIN GENERALIST procedure are in the results section. TELEMETRY STRIPS-SCAN 09/22/2016 Results for this 7:18 AM SUPPLY CHAIN GENERALIST procedure are in the results section. CONSULT IV THERAPY TEAM Routine 09/19/2016 1:31 PM SUPPLY CHAIN GENERALIST CONSULT IV THERAPY TEAM Routine 09/16/2016 2:02 PM SUPPLY CHAIN GENERALIST CHOLANGIOPANCREATOGRAPHY 09/14/2016 Klatskin's tumor (HCC) ENDOSCOPY RETROGRADE 1:15 PM SUPPLY CHAIN GENERALIST ULTRASONOGRAPHY ENDOSCOPY 09/14/2016 Klatskin's tumor (HCC) ESOPHAGUS 1:15 PM SUPPLY CHAIN GENERALIST Results from Last 3 Months US ABDOMEN COMPLETE (10/12/2016)IR ASPIRATION/DRAIN (10/07/2016 1:22 PM)Only the most recent [...] - Claudine Oct 01, 2016 11:35 [address] SUPPLY CHAIN GENERALIST CT ABDOMEN AND PELVIS Clinical Indication: Male, [...] - Sat Sep 19, 2016 8:34 AM SUPPLY CHAIN GENERALIST Ultrasound Doppler of left upper extremity: Clinical [...] Impressions CT-guided transhepatic placement of a 8 Australian pigtail drain into the subhepatic fluid collection/biloma. [...] into the fluid collection and a 8 Australian pigtail catheter was advanced into the fluid collection. Approximately 10 ml of fluid was aspirated. The pigtail catheter was sutured in place and connected to a J VAC system. The patient tolerated the procedure well and left the department in unchanged condition. IV medication: 3 mg Versed, 150 mcg fentanyl. Procedure Note Interface, Radiant Results - WedSep 16, 2016 2:04 PM SUPPLY CHAIN GENERALIST CT-guided drain placement: Clinical Indication: Subhepatic fluid [...] into the fluid collection and a 8 Australian pigtail catheter was advanced into the fluid collection. Approximately 10 ml of fluid was aspirated. The pigtail catheter was sutured in place and connected to a J VAC system. The patient tolerated the procedure well and left the department in unchanged condition. IV medication: 3 mg Versed, [address]-guided transhepatic placement of a 8 Australian pigtail drain into the subhepatic fluid collection/biloma. [...] IV Contrast:Multihance Bowel contrast: None Magnet:1.5 Lamar threadsy Comparison: ERCP September 14, 2016.CT September 11, [...] - Tue Sep 15, 2016 11:28 AM SUPPLY CHAIN GENERALIST MRI ABDOMEN AND MRCP Clinical Indication: Male, [...] IV Contrast:Multihance Bowel contrast: None Magnet:1.5 Lamar threadsy Comparison: ERCP September 14, 2016. CT September [...] Contreras Procedure Date: 09/14/2016 2:48 PM CSN: [id number] Date of : 1945 Gender: Male Attending Physician: Mykel Mooney MD Procedure: ERCP Indications: Ab normal liver function test, suspected biliary mass. Patient is post ERCP with biliary stent and now increasing LFTs. No histological diagnosis . Providers: Mykel Mooney MD (Doctor), Scottie Kan MD (Fellow), Arturo Ceron RN (Nurse), David Hughes, Change Coordinator (Change Coordinator) Referring Physician: Referral Self Medications: Ge neral [...] 9 seconds Procedure Code(s): --- Professional --- 41881, Endoscopic retrograde cholangiopancreatography (ERCP); with placement of endoscopic stent into biliary or pancreatic duct, including pre- and post-dilation and guide wire passage, when performed, including sphincterotomy, when performed, each stent 59940, Endoscopic retrograde cholangiopancreatography (ERCP); with removal of foreign body(s) or stent(s) from biliary/pancreatic duct(s) 85275, Endoscopic retrograde cholangiopancreatography (ERCP); with removal of calculi/debris from biliary/pancreatic duct(s) 12562, Endoscopic retrograde cholangiopancreatography (ERCP); diagnostic, including collection of specimen(s) by brushing or washing, when performed (separate procedure) Diagnosis Code(s): --- Professional --- R94.5, Abnormal results of liver function studies CPT copyright 2015 [employer]. All rights reserved. The codes documented in this report are preliminary and upon converter supervisor review may be revised to meet current [...] Contreras Procedure Date: 09/14/2016 1:19 PM CSN: [id number] Date of : 1945 Gender: Male Attending Physician: Mykel Mooney MD Procedure: Upper EUS Indications: Ab normal liver function test, suspected biliary mass. Patient is post ERCP with biliary stent and now increasing LFTs. No histological diagnosis . Providers: Mykel Mooney MD (Doctor), Scottie Kan MD (Fellow), Arturo Ceron RN (Nurse), David Hughes, Change Coordinator (Change Coordinator) Referring Physician: Referral Self Medications: Pr opofol [...] 45 seconds Procedure Code(s): --- Professional --- 50428, Esophagogastroduodenoscopy, flexible, transoral; with transendoscopic ultrasound-guided intramural or transmural fine needle aspiration/biopsy(s), (includes endoscopic ultrasound examination limited to the esophagus, stomach or duodenum, and adjacent structures) Diagnosis Code(s): --- Professional --- R94.5, Abnormal results of liver function studies CPT copyright 2015 [employer]. All rights reserved. The codes documented in this report are preliminary and upon converter supervisor review may be revised to meet current [...] 8:48 AM) Component Value Range Cytology [facility] [email or web address] Carla Meyer MD, Director Cytopathology Department of Pathology and Laboratory Medicine [address] [place] [phone] Surgical Pathology Office: [phone] CYTOLOGY REPORT NAME: BEN MENDEZ SURG PATH #: [id number] MR #: [id number] ALT ID #: BILLING #: [id number] LOCATION: [facility] DATE OF PROCEDURE: 09/14/2016 AGE: 71 SEX: [...] Results - WedSep 14, 2016 11:28 AM SUPPLY CHAIN GENERALIST Chest single view. This is a 71-year-old [...] Great Vessels: Prior median sternotomy and CABG. Tribal calcific coronary artery disease. The heart size [...] - Sat Sep 12, 2016 5:22 AM SUPPLY CHAIN GENERALIST CT CHEST, ABDOMEN AND PELVIS Clinical Indication: [...] Great Vessels: Prior median sternotomy and CABG. Tribal calcific coronary artery disease. The heart size [...] Color,UA LIT Turbidity,UA 1+ (A) CLEAR-CLEAR Specific Ell[place]-Urine 1.017 1.003-1.035 pH,UA 5.0 5.0-8.0 Protein,UA NEG [...]
[2016-10-12] MEDS ORDERED: NS IV 1000 ML 1,000 ML ONE (17:48)
[2016-10-12] MEDS ORDERED: NS IV 1000 ML 1,000 ML IV ONE (17:49)
[2016-10-12] MEDS ORDERED: VANCOMYCIN IV ADD-VANTAGE 1,000 MG in SODIUM CHLORIDE (ADD-VANTAGE) 250 ML IV ONE (18:00)
[2016-10-12] MEDS ORDERED: PIPERACILLIN SODIUM/TAZOBACTAM 4.5 GM in NORMAL SALINE (BAXTER MINI) 100 ML IV ONE (19:00)
[2016-10-12 20:59] VITALS: BP 115/66
--- NOTE | 2016-10-24 00:27 | ED Fever ---
History of Present Illness General Chief Complaint: Abdominal/GI Problems Stated Complaint: SEPSIS Nursing Triage Note: PT SENT TO [facility]IA [facility] FROM DR. GAUTHIER OFFICE WITH CC OF HAVING AN ABSCESS ON HIS LIVER AND NEEDS TRANSPORTED TO [facility]. PT SHIVERING OFF AND ON, STATES HE WAS RUNNING A FEVER [facility]. PT WAS SEEN AT [facility] THIS MONTH FOR THE SAME THING. Sepsis Screen: Possible Sepsis Risk Source: patient, family, RN/MD, RN notes reviewed, old records Exam Limitations: no limitations History of Present Illness Time seen by provider: 17:48 Initial Comments As above. Dr. Garcia has already talked c/ patient's physician @ [facility]. They want him to come here and have antibiotics started before being shipped up to them. Timing/Duration: this morning Fever Quality: greater than 100.5 F Associated Symptoms: abdominal pain Allergies and Home Medications Allergies Coded Allergies: No Known Drug Allergies (Unverified , 02/07/16) Home Medications Aspirin 81 Mg Tabec 81 MG PO DAILY (Reported) Clopidogrel Bisulfate 75 Mg Tablet 75 MG PO DAILY (Reported) Finasteride 5 Mg Tablet 5 MG PO DAILY (Reported) Hydrocodone/Acetaminophen 1 Each Tablet #30 1 EACH PO Q4H PRN PRN PAIN Prescribed by: JIMENA BRADLEY on 02/12/16 0916 Lisinopril 20 Mg Tablet 10 MG PO DAILY (Reported) TAKES 1/2 OF A (20 MG) TABLET Metoprolol Succinate 25 Mg Tab.er.24h 25 MG PO HS (Reported) [place] 3 Polyunsat Fatty Acids 1,000 Mg Cap 1,000 MG PO BID WITH MEALS (Reported ) Tamsulosin HCl 0.4 Mg Cap.er.24h 0.4 MG PO HS (Reported) Constitutional: see HPI chills fever Gastrointestinal: see HPI abdominal pain All Other Systems Reviewed Negative Unless Noted: Yes (Negative excepted noted.) Past Tdkdwvk-Zornqv-Ravdou Hx Patient Social History Former Smoker/When Quit: Nov 15, 2001 Recent Foreign Travel: No Contact w/Someone Who Travel: No Recent Infectious Disease Expo: No Recent Hopitalizations: Yes (AT FOR LIVER ABSCESS) Immunizations Up To Date Tetanus Booster (TDap): More than 5yrs PED Vaccines UTD: Yes Date of Pneumonia Vaccine: Jul 30, 2015 Date of Influenza Vaccine: Jun 28, 2015 Seasonal Allergies Seasonal Allergies: No Surgeries HX Surgeries: Yes (BYPASS SURGERY 2001, STENTS/ANGIOPLASTY 12/27) Surgeries: Appendectomy, CABG, Gallbladder Respiratory Hx Respiratory Disorders: No Cardiovascular Hx Cardiac Disorders: Yes (QUAD BYPASS, HX [place] X2, STENTS/ANGIOPLASTY 12/27) Cardiac Disorders: Coronary Artery Disease, High Cholesterol, Hypertension Neurological Hx Neurological Disorders: No Reproductive System Hx Reproductive Disorders: No Sexually Transmitted Disease: No HIV/AIDS: No Genitourinary Hx Genitourinary Disorders: Yes (enlarged prostate ) Genitourinary Disorders: Prostate Problems Gastrointestinal Hx Gastrointestinal Disorders: Yes Gastrointestinal Disorders: Gastroesophageal Reflux, Polyps Musculoskeletal Hx Musculoskeletal Disorders: No Endocrine Hx Endocrine Disorders: No HEENT HX ENT Disorders: Yes (GLASSES) Loss of Vision: Bilateral Hearing Impairment: Denies Cancer Hx Cancer: No Psychosocial Hx Psychiatric Problems: No Integumentary HX Skin/Integumentary Disorder: No Blood Transfusions Hx Blood Disorders: No Adverse Reaction to a Blood Tr: No (HAS HAD BLOOD WITH NO REACTION) Family Medical History Significant Family History: No Pertinent Family Hx Family Medial History: Cardiovascular disease 19 FATHER FH: uterine cancer 19 MOTHER Myocardial infarction 19 FATHER Physical Exam Vital Signs Capillary Refill : Less Than 3 Seconds General Appearance: WD/WN no apparent distress HEENT: normal ENT inspection Neck: normal inspection Respiratory: no respiratory distress Cardiovascular: regular rate, rhythm Gastrointestinal: guarding (RUQ)No rebound, tenderness (RUQ) Extremities: normal inspection Neurologic/Psychiatric: no motor/sensory deficits alert oriented x 3 Skin: warm/dry Lymphatic: no adenopathy Progress/Results/Core Measures Results/Orders My Orders Orders-CHARITY SULLIVAN DO Saline Lock/Iv-Start (10/12/16 17:49) Saline Lock/Iv-Start (10/12/16 17:49) Ns Iv 1000 Ml (Sodium Chloride 0.9%) (10/12/16 17:49) Ns Iv 1000 Ml (Sodium Chloride 0.9%) (10/12/16 17:48) Vancomycin Iv Add-[place] (Vancomycin Iv (10/12/16 18:00) Piperacillin Sodium/Tazobactam (Zosyn Vi (10/12/16 19:00) Iv Infusion <= First Hr Ed (10/12/16 ) Blood Pressure Mean: 104 Departure Impression Impression: Primary Impression: Fever Additional Impression: Perihepatic abscess Disposition: XFER SHT-TRM HOSP Condition: Stable Transfer Transfer Time: 18:51 Transfer Facility: [facility] Method of Transfer: EMS Departure-Patient Inst. Referrals: CHARITY GARCIA DO (PCP) Primary Care Physician CHARITY SULLIVAN DO Oct 24, 2016 00:27
== END 2016-10-12 20:59 | disposition short-term general hospital (02) ==
LOC: EDUNIT# 17:24 → ER 17:26
DX: K75.0 Abscess of liver (principal); R50.9 Fever, unspecified; I10 Essential (primary) hypertension; E78.00 Pure hypercholesterolemia, unspecified; I25.10 Atherosclerotic heart disease of native coronary artery without angina pectoris
CPT/HCPCS: 96361; 96365; 96367

== ENCOUNTER → 2016-10-12 | Outpatient (CLI) | payer MEDICARE ==
--- OUTSIDE RECORDS SUMMARY | 2016-10-12 12:03 | XMS REPORT | Continuity of Care Document ---
Author Author [facility] Organization [facility] Address Unknown Phone Unavailable Care Team Providers Care Investor Relations Director Name Role Phone Yassine Garcia PCP Unavailable Source Comments Some departments are not documenting in the electronic medical record. If you do not see the information that you expected, contact Release of Information in the Health Information Management department at [phone] for further assistance in locating additional records.[facility] Active Allergies and Adverse Reactions No [...] Active 25 mg extended release daily. tablet Truxton-3 Fatty Take 3 Caps by mouth Active Acids-Vitamin E (FISH daily. OIL) 1,000 mg cap piperacillin/tazobactam Administer 3.375 g 1400 mL 0 09/20/19 (ZOSYN) iso-osmotic IVPB through vein every 6 17 17 hours for 7 days. piperacillin/tazobactam Administer 15 mL through 1440 mL 0 09/14/19 10/08/19 Discontin (ZOSYN) 3.375 g/15 mL vein every 6 hours for 24 17 17 ued injection days. 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 Pseudomonas infection 10/01/2016 Obstructive jaundice 09/11/2016 Diarrhea 09/11/2016 Weight loss 09/11/2016 Transaminitis 09/11/2016 Hyperbilirubinemia 09/11/2016 Most Recent Encounters Date Type Specialty Providers Description 11/16/2016 [facility] Mykel Mooney MD Common bile duct (CBD) Encounter stricture 11/09/2016 [facility] Mykel Mooney MD Bile duct abnormality Encounter 10/12/2016 Telephone Infectious Diseases Virginia Rincon DO Outpatient Antibiotic Therapy (Opat) 10/12/2016 Documentation Transplant Surgery Taco Jung MD 10/08/2016 Telephone Infectious Diseases Virginia Rincon DO Outpatient Antibiotic Therapy (Opat) 10/07/2016 Hospital Radiology Virginia Rincon DO Arrived Encounter 10/06/2016 Outpt. Infectious Virginia Davis, Antibiotic Therapy 10/02/2016 Telephone Gastroenterology Kayli Miner Appointment Request - ERCP 10/01/2016 Hospital Radiology Virginia Rincon DO Encounter 10/01/2016 Office Visit Infectious Diseases Virginia Rincon DO Extrahepatic biloma (Primary Dx); Pseudomonas infection 10/01/2016 Office Visit Transplant Surgery Taco Jung MD Obstructive jaundice (Primary Dx); Liver cyst; Other intra-abdominal and pelvic swelling, mass and lump 10/01/2016 Hospital Radiology Taco Jung MD Encounter 10/01/2016 Prep for Case Transplant Surgery Teo Brooke RN 10/01/2016 Ancillary Transplant Surgery Taco Jung MD Obstructive jaundice Orders (Primary Dx) 09/30/2016 Screening Form 09/29/2016 Outpt. Infectious Diseases Virginia Rincon DO Antibiotic Therapy 09/29/2016 Telephone GastroenterKayli Laureano Appointment Request - ERCP - [facility] 09/25/2016 Telephone Transplant Surgery Taco Jung MD Other 09/25/2016 Prep for Case Gastroenterology Maribel Mcneill APRN 09/24/2016 Outpt. Infectious Diseases Virginia Rincon DO Antibiotic Therapy 09/21/2016 Telephone Infectious Diseases Virginia Rincon DO Outpatient Antibiotic Therapy (Opat) 09/18/2016 Hospital Radiology Nataliia Dumas DO Encounter 09/18/2016 Orders Only Transplant Surgery Teo Brooke RN Obstructive jaundice (Primary Dx) 09/18/2016 Telephone General Internal Medicine Nataliia Dumas DO Post Procedure 09/16/2016 [facility] Radiology Clara Patel, PEST CONTROL OPERATOR Encounter Kobi Alvarez RN Lemons, Steven, MD 09/14/2016 [facility] Radiology Scottie Kan MD Encounter 09/14/2016 Screening Form 09/14/2016 Endo Rslt Enc Self, Referral 09/14/2016 Endo Rslt Enc Self, Referral 09/14/2016 Anesthesia Lottie Garcia, STOCK TRADER Event 09/14/2016 Surgery Mykel Mooney MD ULTRASONOGRAPHY ENDOSCOPY ESOPHAGUS 09/12/2016 Telephone Gastroenterology Deepak Fam MD Error 09/11/2016 Hospital Radiology Gabriel Newberry MD Encounter 09/11/2016 [facility] Nereyda Muhammad MD Obstructive jaundice - Encounter Gabriel Newberry MD 09/20/2016 Nataliia Dumas DO Olyaee, Mojtaba, MD Social History Tobacco Use Types Packs/Day Years Used Date Former Smoker 0.5 30 Quit: 10/01/2001 Smokeless Tobacco: Never Used Alcohol Use Drinks/Week oz/Week Comments No 0 Standard 0.0 drinks or equivalent Last Filed Vital Signs Vital Sign Reading Time Taken Blood Pressure 112/69 10/07/2016 12:30 PM BLASTING HELPER Pulse 61 10/07/2016 12:30 PM BLASTING HELPER Temperature 36.5 C (97.7 F) 10/01/2016 3:19 PM BLASTING HELPER Respiratory Rate - - Height 1.778 m (5' 10") 10/01/2016 10:59 AM BLASTING HELPER Weight 76.658 kg (169 lb) 10/01/2016 10:59 AM BLASTING HELPER Body Mass Index 24.25 10/01/2016 10:59 AM BLASTING HELPER Oxygen Saturation 100% 10/07/2016 12:30 PM BLASTING HELPER Plan of Care Date Type Specialty Providers Description 11/09/2016 Surgery Mykel Mooney MD CHOLANGIOPANCREATOGRAPHY [address] ENDOSCOPY [address] [place] [address] [phone] (Fax) 11/16/2016 Surgery Mykel Mooney MD Canceled [address] CHOLANGIOPANCREATOGRAPHY [address] [place] [address] [phone] (Fax) 11/19/2016 Appointment Radiology Taco Jung MD [address] [place] [address] [phone] (Fax) 11/19/2016 Appointment Transplant Surgery Taco Jung MD [address] [place] [address] [phone] (Fax) Health Maintenance Due Date Last Done Comments Physical (Comprehensive) 1952 Exam Pertussis Vaccine 1954 Tetanus Vaccine 1960 Colorectal Cancer 1993 Screening Shingles Vaccine 2003 Prevnar/Pneumovax (#1) 2008 Influenza Vaccine 05/14/2016 Procedures from Last 3 Months Procedure Name Priority Date/Time Associated Diagnosis Comments ECG-SCAN 09/22/2016 Results for this 8:02 AM BLASTING HELPER procedure are in the results section. TELEMETRY STRIPS-SCAN 09/22/2016 Results for this 7:18 AM BLASTING HELPER procedure are in the results section. CONSULT IV THERAPY TEAM Routine 09/19/2016 1:31 PM BLASTING HELPER CONSULT IV THERAPY TEAM Routine 09/16/2016 2:02 PM BLASTING HELPER CHOLANGIOPANCREATOGRAPHY 09/14/2016 [place]'s tumor (HCC) ENDOSCOPY RETROGRADE 1:15 PM BLASTING HELPER ULTRASONOGRAPHY ENDOSCOPY 09/14/2016 [place]'s tumor (HCC) ESOPHAGUS 1:15 PM BLASTING HELPER Results from Last 3 Months IR ASPIRATION/DRAIN (10/07/2016 1:22 PM)Only the most recent of 3 results within the time period is included. Narrative This IR procedure does not require a dictated result. BUN (10/05/2016)Only the most recent of 3 results within the time period is included. Component Value Range Blood Urea Nitrogen 11 Specimen Blood ALT (SGPT) (10/05/2016)Only the most recent of 3 results within the time period is included. Component Value Range ALT (SGPT) 54 Specimen Blood AST (SGOT) (10/05/2016)Only the most recent of 3 results within the time period is included. Component Value Range AST (SGOT) 53 Specimen Blood POTASSIUM (10/05/2016)Only the most recent of 3 results within the time period is included. Component Value Range Potassium 3.8 Specimen Blood ALK PHOS TOTAL (10/05/2016)Only the most recent of 3 results within the time period is included. Component Value Range Alk Phosphatase 250 Specimen Blood CREATININE (10/05/2016)Only the most recent of 3 results within the time period is included. Component Value Range Creatinine 1.03 Specimen Blood PLATELET COUNT (10/05/2016)Only the most recent of 3 results within the time period is included. Component Value Range Platelet Count 194 Specimen Blood CBC (10/05/2016)Only the most recent of 3 results within the time period is included. Component Value Range White Blood Cells 2.8 Specimen Blood HEMOGLOBIN (10/05/2016)Only the most recent of 3 results within the time period is included. Component Value Range Hemoglobin 9.[address] ABD/PELV W CONTRAST (10/01/2016 10:00 AM)Only [...] - Claudine Oct 01, 2016 11:[address] ABDOMEN AND PELVIS Clinical Indication: Male, [...] Mar Hernández M.D. on 10/01/2016 10:50 AM. ECG-SCAN (09/22/2016 8:02 AM) Narrative Ordered by [...] - Sat Sep 19, 2016 8:34 AM BLASTING HELPER Ultrasound Doppler of left upper extremity: Clinical [...] Impressions CT-guided transhepatic placement of a 8 [place] pigtail drain into the subhepatic fluid collection/biloma. [...] into the fluid collection and a 8 [place]vor[place] pigtail catheter was advanced into the fluid collection. Approximately 10 ml of fluid was aspirated. The pigtail catheter was sutured in place and connected to a J VAC system. The patient tolerated the procedure well and left the department in unchanged condition. IV medication: 3 mg Versed, 150 mcg fentanyl. Procedure Note Interface, Radiant Results - WedSep 16, 2016 2:[address]-guided drain placement: Clinical Indication: Subhepatic fluid [...] into the fluid collection and a 8 [place] pigtail catheter was advanced into the fluid collection. Approximately 10 ml of fluid was aspirated. The pigtail catheter was sutured in place and connected to a J VAC system. The patient tolerated the procedure well and left the department in unchanged condition. IV medication: 3 mg Versed, [address]-guided transhepatic placement of a 8 [place]vor[place] pigtail drain into the subhepatic fluid collection/biloma. [...] - Tue Sep 15, 2016 11:28 AM BLASTING HELPER MRI ABDOMEN AND MRCP Clinical Indication: Male, [...] IV Contrast:Multihance Bowel contrast: None Magnet:1.5 [employer] Comparison: ERCP September 14, 2016. CT September [...] Contreras Procedure Date: 09/14/2016 2:48 PM CSN: [id number] Date of : 1945 Gender: Male Attending Physician: Mykel Mooney MD Procedure: ERCP Indications: Ab normal liver function test, suspected biliary mass. Patient is post ERCP with biliary stent and now increasing LFTs. No histological diagnosis . Providers: Mykel Mooney MD (Doctor), Scottie Kan MD (Fellow), Artuor Ceron RN (Nurse), David Hughes, Data Entry Associate (Data Entry Associate) Referring Physician: Referral Self Medications: Ge neral [...] 9 seconds Procedure Code(s): --- Professional --- 52574, Endoscopic retrograde cholangiopancreatography (ERCP); with placement of endoscopic stent into biliary or pancreatic duct, including pre- and post-dilation and guide wire passage, when performed, including sphincterotomy, when performed, each stent 04854, Endoscopic retrograde cholangiopancreatography (ERCP); with removal of foreign body(s) or stent(s) from biliary/pancreatic duct(s) 17590, Endoscopic retrograde cholangiopancreatography (ERCP); with removal of calculi/debris from biliary/pancreatic duct(s) 52303, Endoscopic retrograde cholangiopancreatography (ERCP); diagnostic, including collection of specimen(s) by brushing or washing, when performed (separate procedure) Diagnosis Code(s): --- Professional --- R94.5, Abnormal results of liver function studies CPT copyright 2015 [employer]. All rights reserved. The codes documented in this report are preliminary and upon management recruiter review may be revised to meet current [...] Contreras Procedure Date: 09/14/2016 1:19 PM CSN: [id number] Date of : 1945 Gender: Male Attending Physician: Mykel Mooney MD Procedure: Upper EUS Indications: Ab normal liver function test, suspected biliary mass. Patient is post ERCP with biliary stent and now increasing LFTs. No histological diagnosis . Providers: Mykel Mooney MD (Doctor), Scottie Kan MD (Fellow), Arturo Ceron RN (Nurse), David Hughes, Data Entry Associate (Data Entry Associate) Referring Physician: Referral Self Medications: Pr opofol [...] 45 seconds Procedure Code(s): --- Professional --- 72203, Esophagogastroduodenoscopy, flexible, transoral; with transendoscopic ultrasound-guided intramural or transmural fine needle aspiration/biopsy(s), (includes endoscopic ultrasound examination limited to the esophagus, stomach or duodenum, and adjacent structures) Diagnosis Code(s): --- Professional --- R94.5, Abnormal results of liver function studies CPT copyright 2015 [employer]. All rights reserved. The codes documented in this report are preliminary and upon management recruiter review may be revised to meet current [...] 8:48 AM) Component Value Range Cytology [email or web address] Carla Meyer MD, Director Cytopathology Department of Pathology and Laboratory Medicine [address] [place] [phone] Surgical Pathology Office: [phone] CYTOLOGY REPORT NAME: BEN MENEDZ SURG PATH #: [id number] MR #: [id number] ALT ID #: BILLING #: [id number] LOCATION: [facility] DATE OF PROCEDURE: 09/14/2016 AGE: 71 SEX: [...] Results - WedSep 14, 2016 11:28 AM BLASTING HELPER Chest single view. This is a 71-year-old [...] Great Vessels: Prior median sternotomy and CABG. [place] calcific coronary artery disease. The heart size [...] - Sat Sep 12, 2016 5:[address] CHEST, ABDOMEN AND PELVIS Clinical Indication: [...] Great Vessels: Prior median sternotomy and CABG. [place] calcific coronary artery disease. The heart size [...] opinions expressed in this report Finalized by Wlifrid Nguyen M.D. on 09/12/2016 5:19 AM. Dictated by Sujit Valdez M.D. on 09/12/2016 3:53 AM. URINALYSIS, MICROSCOPIC (09/11/2016 10:01 PM) Component Value Range WBCs,UA 0-2 0-2 /HPF RBCs,UA 0-2 0-3 /HPF MucousUA 1+ Bacteria,UA FEW (A) NEG-NEG Specimen Urine URINALYSIS DIPSTICK (09/11/2016 10:01 PM) Component Value Range Color,UA LIT Turbidity,UA 1+ (A) CLEAR-CLEAR Specific [place]-Urine 1.017 1.003-1.035 pH,UA 5.0 5.0-8.0 Protein,UA NEG [...]
[2016-10-12 12:36] LABS: MEAN PLATELET VOLUME 10.1 FL (7.4-10.4); RED BLOOD COUNT 2.91 10^6/uL (4.35-5.85); RED CELL DISTRIBUTION WIDTH 14.2 % (10.0-14.5); WHITE BLOOD COUNT 2.4 10^3/uL (4.3-11.0)
[2016-10-12 12:58] LABS: ALANINE AMINOTRANSFERASE 58 U/L (0-55); ALBUMIN 3.8 G/DL (3.2-4.5); ANION GAP 10 MMOL/L (5-14); ASPARTATE AMINO TRANSFERASE 50 U/L (5-34); BILIRUBIN,TOTAL 1.6 MG/DL (0.1-1.0); BLOOD UREA NITROGEN 13 MG/DL (7-18); BUN/CREATININE RATIO 12; CALCIUM 9.7 MG/DL (8.5-10.1); CARBON DIOXIDE 23 MMOL/L (21-32); CHLORIDE 102 MMOL/L (98-107); CREATININE SERUM 1.11 MG/DL (0.60-1.30); GFR ESTIMATED > 60; GLUCOSE 126 MG/DL (70-105); POTASSIUM 4.1 MMOL/L (3.6-5.0); SODIUM 135 MMOL/L (135-145); TOTAL PROTEIN 7.1 G/DL (6.4-8.2)
--- NOTE | 2016-10-12 13:35 | Diagnostic Imaging Report ---
US HEPATIC (LIVER)[id number] TECHNIQUE: Transabdominal grayscale and color Doppler imaging of the right upper quadrant was performed. INDICATION: Abdominal pain with sepsis. COMPARISON: Liver ultrasound of 09/10/2016. FINDINGS: The liver demonstrates mild diffuse increased echogenicity and heterogeneity, which can be seen with hepatitis. There is no focal hepatic lesion. The portal vein is patent with antegrade flow. The IVC is also patent. There is a small amount of anechoic fluid about the liver with intrinsic septations. This is most focal near the hepatic dome, and has a somewhat loculated appearance measuring 7.3 x 7.7 x 9.3 cm. The gallbladder is surgically absent. Common bile duct is not well visualized. Right kidney is normal in size without hydronephrosis. IMPRESSION: 1. Complex fluid and/or collection near the hepatic dome raise possibility of abscess or hematoma. Recommend CT abdomen with and without contrast for better characterization. 2. Patent portal vein. 3. No focal hepatic lesions. Dictated by: Dictated on workstation # [id number]
== END ==
LOC: RAD 11:58
PROVIDERS: ATTEND Internal Medicine
DX: A41.9 Sepsis, unspecified organism (principal)
CPT/HCPCS: 36415; 76705; 80053; 83605; 85027; 85652; 87040

== ENCOUNTER 2017-01-03 09:49 | Emergency (ER) | payer MEDICARE ==
[~2017-01-03] VITALS: Ht 177.8 cm; Wt 76.7 kg
[2017-01-03] MEDS ORDERED: fentaNYL INJECTION 100 MCG/2 ML AMP IVP ONE ×2 (11:00→13:30)
[2017-01-03] MEDS ORDERED: NS IV 1000 ML 1,000 ML IV SCH (11:00)
--- NOTE | 2017-01-03 11:00 | ED Integumentary General ---
General Chief Complaint: Skin/Wound Problems Stated Complaint: POST OP/ABD INCISION INFECTION Nursing Triage Note: TO ED PER W/C HAD SURG AT [facility] ON DECEMBER 29 FOR A BILLARY STRICTURE. DISCHARGE ON WEDNESDAY. TODAY HOME HEALTH CAME TO PACK THE WOUND AREA RED AROUND. AND HAVING SEVERE PAIN Source: patient Exam Limitations: no limitations History of Present Illness Time seen by provider: 10:58 Initial Comments To ER with concerns of postoperative wound infection and pain. On December 29 patient had a biliary bypass according to the at the [facility] for biliary stricture/obstruction. He was discharged on Wednesday the . Yesterday, home health noticed the wound to be dehiscing so they packed with gauze. Today is more tender and he had significant pain in the abdomen last night. No nausea or vomiting, no jaundice noticed by the and he is passing gas and having bowel movements. His abdomen is only tender in the right upper quadrant. No vomiting. No cough or shortness of breath. Timing/Duration: getting worse Severity: moderate Location: torso Associated Symptoms: denies symptoms Allergies and Home Medications Allergies Coded Allergies: No Known Drug Allergies (Unverified , 02/07/16) Home Medications Aspirin 81 Mg Tabec, 81 MG PO DAILY, (Reported) Clopidogrel Bisulfate 75 Mg Tablet, 75 MG PO DAILY, (Reported) Finasteride 5 Mg Tablet, 5 MG PO DAILY, (Reported) Hydrocodone/Acetaminophen 1 Each Tablet, 1 EACH PO Q4H PRN for PAIN, #30 Prescribed by: JIMENA BRADLEY on 02/12/16 0916 Lisinopril 20 Mg Tablet, 10 MG PO DAILY, (Reported) TAKES 1/2 OF A (20 MG) TABLET Metoprolol Succinate 25 Mg Tab.er.24h, 25 MG PO HS, (Reported) [place] 3 Polyunsat Fatty Acids 1,000 Mg Cap, 1,000 MG PO BID WITH MEALS, ( Reported) Tamsulosin HCl 0.4 Mg Cap.er.24h, 0.4 MG PO HS, (Reported) Constitutional: see HPI, No chills, No fever EENTM: see HPI Respiratory: no symptoms reported Cardiovascular: no symptoms reported Gastrointestinal: RUQ, abdominal pain Genitourinary: no symptoms reported Musculoskeletal: no symptoms reported Skin: no symptoms reported Psychiatric/Neurological: No Symptoms Reported Endocrine: No Symptoms Reported Past Oadgpkc-Jwipxm-Rjjpwq Hx Patient Social History Alcohol Use: Denies Use Recreational Drug Use: No Smoking Status: Never a Smoker Former Smoker/When Quit: Nov 15, 2001 Recent Foreign Travel: No Contact w/Someone Who Travel: No Recent Infectious Disease Expo: No Recent Hopitalizations: Yes (AT [facility] FOR LIVER ABSCESS) Immunizations Up To Date Tetanus Booster (TDap): More than 5yrs PED Vaccines UTD: Yes Date of Pneumonia Vaccine: Jul 30, 2015 Date of Influenza Vaccine: Jun 28, 2015 Seasonal Allergies Seasonal Allergies: No Surgeries HX Surgeries: Yes (BYPASS SURGERY 2001, STENTS/ANGIOPLASTY 12/27 [facility]) Surgeries: Appendectomy, CABG, Gallbladder Respiratory Hx Respiratory Disorders: No Cardiovascular Hx Cardiac Disorders: Yes (QUAD BYPASS, HX TX X2, STENTS/ANGIOPLASTY 12/27) Cardiac Disorders: Coronary Artery Disease, High Cholesterol, Hypertension Neurological Hx Neurological Disorders: No Reproductive System Hx Reproductive Disorders: No Sexually Transmitted Disease: No HIV/AIDS: No Genitourinary Hx Genitourinary Disorders: Yes (enlarged prostate ) Genitourinary Disorders: Prostate Problems Gastrointestinal Hx Gastrointestinal Disorders: Yes Gastrointestinal Disorders: Gastroesophageal Reflux, Polyps Musculoskeletal Hx Musculoskeletal Disorders: No Endocrine Hx Endocrine Disorders: No HEENT HX ENT Disorders: Yes (GLASSES) Loss of Vision: Bilateral Hearing Impairment: Denies Cancer Hx Cancer: No Psychosocial Hx Psychiatric Problems: No Integumentary HX Skin/Integumentary Disorder: No Blood Transfusions Hx Blood Disorders: No Adverse Reaction to a Blood Tr: No (HAS HAD BLOOD WITH NO REACTION) Family Medical History Significant Family History: No Pertinent Family Hx Family Medial History: Cardiovascular disease 19 FATHER FH: uterine cancer 19 MOTHER Myocardial infarction 19 FATHER Physical Exam Vital Signs Vital Sign - Last 12Hours 01/03/17 09:55 Temp 97.2 Pulse 70 Resp 18 B/P (MAP) 129/82 Pulse Ox 95 O2 Delivery Room Air Capillary Refill : Less Than 3 Seconds General Appearance: WD/WN, no apparent distress HEENT: PERRL/EOMI, normal ENT inspection Neck: non-tender, full range of motion Cardiovascular: regular rate, rhythm Respiratory: normal breath sounds, no respiratory distress, no accessory muscle use Gastrointestinal: soft, other (there is a large incision over the right upper quadrant of the abdomen. The most lateral aspect of this incision has dehisced a bit and there is some serous fluid pooled in the wound bed. A culture this is been collected. Gauze packing was removed for evaluation and repacked with more gauze.) Extremities: normal range of motion, non-tender Neurologic/Psychiatric: alert, normal mood/affect, oriented x 3 Skin: normal color, warm/dry Progress/Results/Core Measures Results/Orders Lab Results Laboratory Tests Test 01/03/17 10:57 01/03/17 13:11 Range/Units White Blood Count 7.5 4.3-11.0 10^3/uL Red Blood Count 3.94 L 4.35-5.85 10^6/uL Hemoglobin 11.9 L 13.3-17.7 G/DL Hematocrit 36 L 40-54 % Mean Corpuscular Volume 92 80-99 FL Mean Corpuscular Hemoglobin 30 25-34 PG Mean Corpuscular Hemoglobin Concent 33 32-36 G/DL Red Cell Distribution Width 13.4 10.0-14.5 % Platelet Count 183 130-400 10^3/uL Mean Platelet Volume 10.1 7.4-10.4 FL Neutrophils (%) (Auto) 75 42-75 % Lymphocytes (%) (Auto) 8 L 12-44 % Monocytes (%) (Auto) 14 H 0-12 % Eosinophils (%) (Auto) 3 0-10 % Basophils (%) (Auto) 0 0-10 % Neutrophils # (Auto) 5.6 1.8-7.8 X 10^3 Lymphocytes # (Auto) 0.6 L 1.0-4.0 X 10^3 Monocytes # (Auto) 1.0 0.0-1.0 X 10^3 Eosinophils # (Auto) 0.2 0.0-0.3 10^3/uL Basophils # (Auto) 0.0 0.0-0.1 10^3/uL Sodium Level 138 135-145 MMOL/L Potassium Level 3.7 3.6-5.0 MMOL/L Chloride Level 103 98-107 MMOL/L Carbon Dioxide Level 24 21-32 MMOL/L Anion Gap 11 5-14 MMOL/L Blood Urea Nitrogen 16 7-18 MG/DL Creatinine 0.81 0.60-1.30 MG/DL Estimat Glomerular Filtration Rate > 60 BUN/Creatinine Ratio 20 Glucose Level 121 H 70-105 MG/DL Calcium Level 9.1 8.5-10.1 MG/DL Total Bilirubin 0.8 0.1-1.0 MG/DL Aspartate Amino Transf (AST/SGOT) 23 5-34 U/L Alanine Aminotransferase (ALT/SGPT) 22 0-55 U/L Alkaline Phosphatase 185 H 40-136 U/L Total Protein 5.6 L 6.4-8.2 G/DL Albumin 2.9 L 3.2-4.5 G/DL Lipase 18 8-78 U/L Urine Color YELLOW Urine Clarity SLIGHTLY CLOUDY Urine pH 6.5 5-9 Urine Specific [place] 1.010 L 1.016-1.022 Urine Protein 1+ H NEGATIVE Urine Glucose (UA) NEGATIVE NEGATIVE Urine Ketones NEGATIVE NEGATIVE Urine Nitrite NEGATIVE NEGATIVE Urine Bilirubin NEGATIVE NEGATIVE Urine Urobilinogen NORMAL NORMAL MG/DL Urine Leukocyte Esterase NEGATIVE NEGATIVE Urine RBC (Auto) NEGATIVE NEGATIVE Urine RBC RARE /HPF Urine WBC RARE /HPF Urine Squamous Epithelial Cells RARE /HPF Urine Crystals NONE /LPF Urine Bacteria NEGATIVE /HPF Urine Casts NONE /LPF Urine Mucus NEGATIVE /LPF Urine Culture Indicated NO My Orders Orders - NOHEMI MORE APRN Cbc With Automated Diff (01/03/17 10:57) Comprehensive Metabolic Panel (01/03/17 10:57) Lipase (01/03/17 10:57) Ua Culture If Indicated (01/03/17 10:57) Saline Lock/Iv-Start (01/03/17 10:57) Wound Culture (01/03/17 10:57) Ct Abdomen/Pelvis W (01/03/17 10:57) Ns Iv 1000 Ml (Sodium Chloride 0.9%) (01/03/17 11:00) Fentanyl Injection (Sublimaze Injection (01/03/17 11:00) Iohexol Injection (Omnipaque 350 Mg/Ml 1 (01/03/17 11:30) Ns (Ivpb) (Sodium Chloride 0.9% Ivpb Bag (01/03/17 11:30) Fentanyl Injection (Sublimaze Injection (01/03/17 13:30) Ketorolac Injection (Toradol Injection) (01/03/17 13:30) Medications Given in ED Current Medications Medications Dose Ordered Sig/Lenora Route Start Time Stop Time Status Last Admin Dose Admin Fentanyl Citrate 50 mcg ONCE ONCE IVP 01/03/17 11:00 01/03/17 11:02 DC 01/03/17 11:10 50 MCG Fentanyl Citrate 50 mcg ONCE ONCE IVP 01/03/17 13:30 01/03/17 13:31 DC 01/03/17 13:27 50 MCG Iohexol 100 ml ONCE ONCE IV 01/03/17 11:30 01/03/17 11:31 DC 01/03/17 11:57 100 ML Ketorolac Tromethamine 30 mg ONCE ONCE IVP 01/03/17 13:30 01/03/17 13:31 DC 01/03/17 13:25 30 MG Sodium Chloride 100 ml ONCE ONCE IV 01/03/17 11:30 01/03/17 11:31 DC 01/03/17 11:57 80 ML Vital Signs/I&O Vital Sign - Last 12Hours 01/03/17 09:55 Temp 97.2 Pulse 70 Resp 18 B/P (MAP) 129/82 Pulse Ox 95 O2 Delivery Room Air Blood Pressure Mean: 98 Diagnostic Imaging Diagonstic Imaging: CT Comments NAME: ELVIRA CAMPBELL [facility] REC#: [id number] PT STATUS: REG ER : 1945 PHYSICIAN: NOHEMI MORE APRN ADMIT DATE: 01/03/17/ER Draft Date of Exam:01/03/17 CT ABDOMEN/PELVIS W PROCEDURE: CT abdomen and pelvis with contrast. TECHNIQUE: Multiple contiguous axial images were obtained through the abdomen and pelvis after administration of intravenous contrast. INDICATION: Abdominal pain and incisional oozing. FINDINGS: There is a right pleural effusion layering out to a depth of 12 mm. There is a tiny left effusion. There is atelectasis at both lung bases. There is heavy calcification of the coronary arteries. There is a pneumoperitoneum. There is free fluid in the peritoneal cavity. There is an air-fluid level in the right upper abdomen anterior to the liver within the peritoneal free space. This fluid tracks along the right paracolic gutter. There are also air bubbles dispersed in the peritoneal cavity in the right anterior side of the abdomen. There some gas between the oblique muscles and the right lower abdomen. There appears to be dehiscence of the incision in the right lower lateral abdomen. The appendix extends down to the muscle layer of the abdominal wall. The pancreas appears normal. The spleen is unremarkable. The kidneys and adrenals appear normal. There is calcific atherosclerosis of the aorta. There is free fluid in the cul-de-sac. The small bowel is not dilated. Colon is unremarkable. Prostate is enlarged. Urinary bladder appears normal. IMPRESSION: Pneumoperitoneum. There is also intraperitoneal free fluid. There some dehiscence of the incision in the right lower quadrant of the abdomen extending down to the muscle layer. There some gas trapped between the layers of the muscle in the right lower abdominal wall. CRITICAL FINDING Report given to Nohemi More APRN, at 12:24 p.m. 01/03/2017/cinthya Dictated on workstation # [id number] Dict: 01/03/17 1210 Trans: 01/03/[address] [facility] [id number] Interpreted by: PAUL PEDRO Electronically signed by: Departure Communication Progress Notes [id number] discussed my concerns of the CT report and the patient's increased pain though I feel these are normal postoperative findings most likely. I discussed this with the triage nurse at the [facility] named Doreen. She relayed my concerns to Dr. Jung who is the patient's surgeon. He felt these were normal findings as well and wanted to ensure that the patient is on an antibiotic. He is in fact on Levaquin. The patient should call his office tomorrow morning to make an appointment to be seen this week. Impression Impression: Primary Impression: Postoperative wound dehiscence Additional Impressions: postoperative pneumoperitoneum Abdominal pain Disposition: 01 HOME, SELF-CARE Condition: Stable Departure-Patient Inst. Decision time for Depature: 13:59 Referrals: CHARITY GO DO (PCP/Family) Primary Care Physician Patient Instructions: Postoperative Pain (DC) Add. Discharge Instructions: 1. Call Dr. Jung's office tomorrow morning to make an appointment to be seen this week 2. Return to ER for any concerns All discharge instructions reviewed with patient and/or family. Voiced understanding. NHOEMI MORE APRN Jan 03, 2017 11:00
[2017-01-03 11:09] LABS: BASOPHILS % (AUTO) 0 % (0-10); EOSINOPHILS # (AUTO) 0.2 10^3/uL (0.0-0.3); EOSINOPHILS % (AUTO) 3 % (0-10); LYMPHOCYTES # (AUTO) 0.6 X 10^3 (1.0-4.0); LYMPHOCYTES % (AUTO) 8 % (12-44); MEAN CORPUSCULAR HEMOGLOBIN 30 PG (25-34); MEAN CORPUSCULAR HGB CONC 33 G/DL (32-36); MEAN CORPUSCULAR VOLUME 92 FL (80-99); MEAN PLATELET VOLUME 10.1 FL (7.4-10.4); MONOCYTES % (AUTO) 14 % (0-12); NEUTROPHILS # (AUTO) 5.6 X 10^3 (1.8-7.8); NEUTROPHILS % (AUTO) 75 % (42-75); PLATELET COUNT 183 10^3/uL (130-400); RED BLOOD COUNT 3.94 10^6/uL (4.35-5.85); RED CELL DISTRIBUTION WIDTH 13.4 % (10.0-14.5); WHITE BLOOD COUNT 7.5 10^3/uL (4.3-11.0)
[2017-01-03 11:20] LABS: ALANINE AMINOTRANSFERASE 22 U/L (0-55); ALBUMIN 2.9 G/DL (3.2-4.5); ANION GAP 11 MMOL/L (5-14); ASPARTATE AMINO TRANSFERASE 23 U/L (5-34); BILIRUBIN,TOTAL 0.8 MG/DL (0.1-1.0); BLOOD UREA NITROGEN 16 MG/DL (7-18); BUN/CREATININE RATIO 20; CALCIUM 9.1 MG/DL (8.5-10.1); CARBON DIOXIDE 24 MMOL/L (21-32); CHLORIDE 103 MMOL/L (98-107); CREATININE SERUM 0.81 MG/DL (0.60-1.30); GFR ESTIMATED > 60; GLUCOSE 121 MG/DL (70-105); LIPASE 18 U/L (8-78); POTASSIUM 3.7 MMOL/L (3.6-5.0); SODIUM 138 MMOL/L (135-145); TOTAL PROTEIN 5.6 G/DL (6.4-8.2)
[2017-01-03] MEDS ORDERED: NS 100 ML (IVPB) BAG IV ONE (11:30)
[2017-01-03] MEDS ORDERED: IOHEXOL 350 MG/ML 100 ML (OMNIPAQUE 350) VIAL IV ONE (11:30)
--- NOTE | 2017-01-03 12:25 | Diagnostic Imaging Report ---
PROCEDURE: CT abdomen and pelvis with contrast. TECHNIQUE: Multiple contiguous axial images were obtained through the abdomen and pelvis after administration of intravenous contrast. INDICATION: Abdominal pain and incisional oozing. FINDINGS: There is a right pleural effusion layering out to a depth of 12 mm. There is a tiny left effusion. There is atelectasis at both lung bases. There is heavy calcification of the coronary arteries. There is a pneumoperitoneum. There is free fluid in the peritoneal cavity. There is an air-fluid level in the right upper abdomen anterior to the liver within the peritoneal free space. This fluid tracks along the right paracolic gutter. There are also air bubbles dispersed in the peritoneal cavity in the right anterior side of the abdomen. There some gas between the oblique muscles and the right lower abdomen. There appears to be dehiscence of the incision in the right lower lateral abdomen. The appendix extends down to the muscle layer of the abdominal wall. The pancreas appears normal. The spleen is unremarkable. The kidneys and adrenals appear normal. There is calcific atherosclerosis of the aorta. There is free fluid in the cul-de-sac. The small bowel is not dilated. Colon is unremarkable. Prostate is enlarged. Urinary bladder appears normal. IMPRESSION: Pneumoperitoneum. There is also intraperitoneal free fluid. There some dehiscence of the incision in the right lower quadrant of the abdomen extending down to the muscle layer. There some gas trapped between the layers of the muscle in the right lower abdominal wall. CRITICAL FINDING Report given to Allan More APRN, at 12:24 p.m. 01/03/2017/cb Dictated by: Dictated on workstation # [id number]
[2017-01-03 13:24] LABS: BILIRUBIN,URINE NEGATIVE (NEGATIVE); KETONES,URINE NEGATIVE (NEGATIVE); LEUKOCYTE ESTERASE ,URINE NEGATIVE (NEGATIVE); NITRITE,URINE NEGATIVE (NEGATIVE); PH,URINE 6.5 (5-9); PROTEIN,URINE 1+ (NEGATIVE); UROBILINOGEN,URINE NORMAL (NORMAL)
[2017-01-03] MEDS ORDERED: KETOROLAC 30 MG/ML VIAL IVP ONE (13:30)
[2017-01-03 13:43] LABS: SQUAMOUS EPITHELIAL CELL,UR RARE /HPF; WBC,URINE RARE /HPF
[2017-01-03 15:04] VITALS: BP 120/70
== END 2017-01-03 14:09 | disposition home or self-care (01) ==
LOC: EDUNIT# 09:49 → ER 09:51
DX: T81.4XXA Infection following a procedure, initial encounter (principal); G89.18 Other acute postprocedural pain; K66.8 Other specified disorders of peritoneum; I10 Essential (primary) hypertension; Z79.82 Long term (current) use of aspirin; Z79.02 Long term (current) use of antithrombotics/antiplatelets; Z95.1 Presence of aortocoronary bypass graft
CPT/HCPCS: 36415; 74177; 80053; 81000; 83690; 85025; 87070; 87077; 87186; 87205; 96374; 96375; 96376

== ENCOUNTER 2017-04-06 09:30 | Outpatient (RCR) | payer MEDICARE | END 2017-04-12 16:00 | disposition home or self-care (01) | LOC: WOUNDCARE 09:30 | PROVIDERS: ATTEND Nurse Practitioner | DX: T81.31XA Disruption of external operation (surgical) wound, not elsewhere classified, initial encounter (principal) | CPT/HCPCS: 11042; 15271; 87070; 87075; 87077; 87186; 87205; 97597; 99213; 99214 ==

== ENCOUNTER → 2017-04-13 | Outpatient (CLI) | payer MEDICARE | LOC: WOUNDCARE 09:23 | PROVIDERS: ATTEND Nurse Practitioner | DX: L98.491 Non-pressure chronic ulcer of skin of other sites limited to breakdown of skin (principal) | CPT/HCPCS: 11042 ==

== ENCOUNTER → 2017-04-20 | Outpatient (CLI) | payer MEDICARE | LOC: WOUNDCARE 09:26 | PROVIDERS: ATTEND Nurse Practitioner | DX: T81.31XA Disruption of external operation (surgical) wound, not elsewhere classified, initial encounter (principal); L98.491 Non-pressure chronic ulcer of skin of other sites limited to breakdown of skin | CPT/HCPCS: 99212 ==

== ENCOUNTER → 2017-08-12 | Outpatient (CLI) | payer MEDICARE ==
--- NOTE | 2017-08-12 12:20 | Diagnostic Imaging Report ---
PA and lateral views of the chest. COMPARISON: 12/29/2015. INDICATION: Cough. FINDINGS: The lungs demonstrate a 7-mm right perihilar nodule which appears to be new compared to 12/29/2015, exam. The left lung is clear. The heart size is normal. No effusion or pneumothorax. The mediastinum and leah appear unremarkable. Post CABG changes and sternotomy wires are seen. IMPRESSION: Indeterminate 7-mm right perihilar new nodule is seen. Further evaluation with CT scan of the chest is recommended. Report was called/stat faxed to office of Dr. Garcia @ 12:15 PM/vern. Dictated by: Dictated on workstation # [id number]
== END ==
LOC: RAD 11:19
PROVIDERS: ATTEND Internal Medicine
DX: R91.1 Solitary pulmonary nodule (principal); R05 Cough; R61 Generalized hyperhidrosis; Z95.1 Presence of aortocoronary bypass graft
CPT/HCPCS: 71020

== ENCOUNTER → 2017-08-20 | Outpatient (CLI) | payer MEDICARE ==
[~2017-08-20] MED LIST changes: +IOHEXOL 350 MG/ML 100 ML (OMNIPAQUE 350) VIAL IV ONE; +NS 100 ML (IVPB) BAG IV ONE
--- NOTE | 2017-08-20 12:13 | Diagnostic Imaging Report ---
PROCEDURE: CT chest with contrast only. TECHNIQUE: Multiple contiguous axial images were obtained through the chest after administration of intravenous contrast. INDICATION: Lung mass. Perihilar density on the right noted at recent chest radiograph. FINDINGS: Partly calcified circumscribed benign right lower lobe nodule is believed to reflect the nodule alerted to on radiograph. This is a granuloma and measures about 7.8 mm. No noncalcified or suspicious pulmonary nodule and there is no thoracic lymphadenopathy. Aorta is patent and nonaneurysmal. There are postoperative changes of sternotomy and coronary bypass. No thoracic effusion or pneumothorax. There is tubular air within the liver which could be portal venous or biliary. The visualized upper abdominal bowel loops and vascular structures normal. There is no free air or inflammatory process. IMPRESSION: The subcentimeter right lung mass is a partly calcified benign granuloma in the patient's right lower lobe. No further workup needed. Hepatic air noted presumed incidentally given the outpatient status and would most likely be pneumobilia in the setting of previous biliary intervention. Dictated by: Dictated on workstation # [id number]
== END ==
LOC: RAD 09:19
PROVIDERS: ATTEND Internal Medicine
DX: R91.8 Other nonspecific abnormal finding of lung field (principal)
CPT/HCPCS: 71260

== ENCOUNTER → 2018-04-21 | Outpatient (CLI) | payer MEDICARE ==
[~2018-04-21] VITALS: Ht 177.8 cm; Wt 85.3 kg
[~2018-04-21] MED LIST changes: +CATHETER FLUSH 10 ML SYR IV PRN; -IOHEXOL 350 MG/ML 100 ML (OMNIPAQUE 350) VIAL IV ONE; -NS 100 ML (IVPB) BAG IV ONE
[2018-04-21 12:40] VITALS: BP 148/77
--- NOTE | 2018-04-21 17:27 | STRESS TEST ---
DATE OF SERVICE: 04/21/2018 EXERCISE MYOVIEW STRESS TEST REPORT Baseline heart rate is 66. Baseline blood pressure 129/68. Baseline EKG sinus rhythm with no ischemic changes. In summary, the patient was injected with 10.36 mCi of technetium-99 Myoview and the resting images were obtained. Then, the patient started exercising with a baseline heart rate, blood pressure and EKG mentioned above. During exercise, the patient had [address] depression in lead 2. [address] depression in lead 3 and aVF. [address] depression in V4 and V5. Blood pressure was 196/79. He was able to exercise for 9 minutes and 40 seconds on standard Isaias protocol. During recovery, ST segments returned to baseline, had mild ST elevation in AVR. He was asymptomatic. At the end of the test, heart rate and blood pressure returned to baseline. EKG returned to baseline. The resting and stressed images were reviewed and compared in the short axis, horizontal long axis, and vertical long axis views. Review of the images showed diaphragmatic attenuation with decreased uptake at the inferior wall, which is fixed. No significant ischemia was noted. Mild decreased uptake was noted involving the basal to mid anterior septum with no significant ischemia. SSS is 2, SDS is 0. TID value 0.97. On the gated images, the left ventricle appeared to be normal size with mild hypokinesia at the anterior wall and anterior septum. Calculated ejection fraction 42%. CONCLUSION: 1. Excellent exercise tolerance, a total of 9 minutes 40 seconds on standard Isaias protocol, total of 11.3 METS achieving 86% of maximum expected heart rate. 2. Hypertensive response to exercise, returned to baseline during recovery. 3. Diaphragmatic attenuation with mild decreased uptake at the basal to mid inferior wall with no significant ischemia. Mild decreased uptake at the basal to mid anterior septum with no reversibility. No significant ischemia was noted. 4. EKG changes with [address] depression in lead 2. [address] depression in lead 3 and aVF, V4 and V5. Resolved in recovery, mild ST elevation in AVR resolved in recovery. The patient was asymptomatic. 5. Mild hypokinesia involving the anterior wall and anterior septum. Calculated ejection fraction 42%. Job ID: [id number] DocumentID: [id number] Dictated Date: 04/21/2018 14:19:00 Blacksmith Hammer Operator Date: 04/21/2018 17:27:22 Dictated By: BRIGIDO RICE MD
== END ==
LOC: CARD 11:08
PROVIDERS: ATTEND Internal Medicine Cardiovascular Disease
DX: I25.10 Atherosclerotic heart disease of native coronary artery without angina pectoris (principal); R07.89 Other chest pain; I10 Essential (primary) hypertension; E78.2 Mixed hyperlipidemia; R06.02 Shortness of breath; I08.2 Rheumatic disorders of both aortic and tricuspid valves
CPT/HCPCS: 78452; 93017; 93306

== ENCOUNTER 2019-09-04 11:30 | Outpatient (CLI) | payer MEDICARE ==
[~2019-09-04] VITALS: Ht 175 cm; Wt 84.0 kg
[~2019-09-04 11:30] MED LIST changes: -CATHETER FLUSH 10 ML SYR IV PRN; -HYDR-3454 PO; +HYDR-3455 PO; +PRED5DRO24 OP
[2019-09-04] MEDS ORDERED: ASPI-999 PO (11:56)
[2019-09-04] MEDS ORDERED: TAMS0.4C98 PO (11:56)
== END 2019-09-04 12:01 | disposition home or self-care (01) ==
LOC: PREOP 11:30
PROVIDERS: ATTEND Internal Medicine
DX: Z01.818 Encounter for other preprocedural examination (principal)

== ENCOUNTER 2019-09-08 07:25 | Day surgery (SDC) | payer MEDICARE ==
--- NOTE | 2019-08-31 08:49 | HISTORY AND PHYSICAL ---
DATE OF SERVICE: COLONOSCOPY HISTORY AND PHYSICAL The patient is a 74-year-old white male referred by Dr. Garcia for surveillance colonoscopy. He has a past history of colon polyps, tubular adenoma was removed from his rectum little over 5 years ago. In the interval, he reports no significant changes in his health history. He has had no bright red blood per rectum. Denies bowel habit change or abdominal pain. PAST MEDICAL HISTORY: Significant for hypertension and hyperlipidemia as well as coronary artery disease. PAST SURGICAL HISTORY: Significant for coronary artery bypass grafting in 2002. MEDICATIONS ON ADMISSION: Include 81 mg aspirin daily, finasteride 5 mg daily, lovastatin 20 mg daily, tamsulosin 0.4 mg daily, Toprol ER 25 mg daily and 1 gram of fish oil b.i.d. SOCIAL HISTORY: He is retired with no past smoking history and only occasional beer with no other form of alcohol consumption. FAMILY HISTORY: He is not aware of any family history for colon cancer, polyps or inflammatory bowel disease. PHYSICAL EXAMINATION: GENERAL: Reveals a pleasant white male who appears to be in no acute distress. VITAL SIGNS: Weight is down 9 pounds from 5 years ago to 190.6. Blood pressure 122/66. HEENT: Unremarkable. Sclerae nonicteric. Mallampati II oropharyngeal configuration. CHEST: Clear to auscultation. CARDIOVASCULAR: Reveals regular rate and rhythm without murmur, S3 or S4. ABDOMEN: Soft, supple without mass, organomegaly or tenderness. Bowel sounds positive. No bruits noted. EXTREMITIES: Reveal no cyanosis, clubbing or edema. ASSESSMENT: The patient was set up for screening colonoscopy on 09/08/2019. Prep instructions were given and questions were answered. The patient will abstain from aspirin one week prior and continue his other medications unchanged. I thank you for the referral of this pleasant gentleman. Job ID: [id number] DocumentID: [id number] Dictated Date: 08/28/2019 11:57:13 Experimental Box Tester Date: 08/28/2019 12:05:05 Dictated By: TORRES ZAMARRIPA MD
[~2019-09-08] VITALS: Ht 175 cm; Wt 84.0 kg
[2019-09-08] VITALS (13 sets, daily range): BP systolic 103–147; BP diastolic 58–78
[~2019-09-08 07:25] MED LIST changes: +ASPI-999 PO; +TAMS0.4C98 PO
[2019-09-08] MEDS ORDERED: D5 LR IV SOLUTION 1,000 ML IV ONE (07:32)
[2019-09-08] MEDS ORDERED: D5 LR IV SOLUTION 1,000 ML IV STA (07:37)
[2019-09-08] MEDS ORDERED: LIDOCAINE JELLY 2% 6 ML SYRINGE MM PRN (07:45)
[2019-09-08] MEDS ORDERED: MIDAZOLAM 5 MG/5 ML (VERSED) VIAL IV PRN (07:45)
[2019-09-08] MEDS ORDERED: fentaNYL INJECTION 100 MCG/2 ML AMP IVP ONE (07:45)
[2019-09-08] MEDS ORDERED: fentaNYL INJECTION 100 MCG/2 ML AMP ONE (08:17)
[2019-09-08] MEDS ORDERED: LIDOCAINE JELLY 2% 6 ML SYRINGE ONE (08:17)
[2019-09-08] MEDS ORDERED: MIDAZOLAM 5 MG/5 ML (VERSED) VIAL ONE (08:17)
--- NOTE | 2019-09-08 08:24 | Pre-Op Note & Conscious Sedat ---
Pre-Operative Progress Note H&P Reviewed The H&P was reviewed, patient examined and no changes noted. Date H&P Reviewed: Sep 08, 2019 Time H&P Reviewed: 07:55 Conscious Sedation Pre-Proced ASA Score 2 For ASA 3 and 4: Consider anesthesia and medical clearance. Also, for patients with a history of failed moderate sedation consider anesthesia. Airway Lungs Heart ASA score ASA 1: a normal healthy patient ASA 2: a patient with a mild systemic disease (mid diabetes, controlled hypertension, obesity ASA 3: a patient with a severe systemic disease that limits activity (angina, COPD, prior Myocardial infarction) ASA 4: a patient with an incapacitating disease that is a constant threat to life (CHF, renal failure) ASA 5: a moribund patient not expected to survive 24 hrs. (ruptured aneurysm) ASA 6: a declared brain- patient whose organs are being harvested. For emergent operations, add the letter E after the classification Mallampati Classification Grade 2 Sedation Plan Analgesia, Amnesia, Plan communicated to team members, Discussed options with patient/fam, Discussed risks with patient/fam The patient is an appropriate candidate to undergo the planned procedure, sedation, and anesthesia. The patient immediately re-assessed prior to indication. TORRES ZAMARRIPA MD Sep 08, 2019 08:24
--- NOTE | 2019-09-08 13:17 | OPERATIVE REPORT ---
DATE OF SERVICE: COLONOSCOPY SUMMARY INDICATION FOR THE PROCEDURE: Surveillance colonoscopy due to history of colon polyps. The patient was placed in left lateral decubitus position. Prior to undergoing colonoscopy, digital rectal evaluation was performed. Anal sphincter tone was normal and the perianal reflexes intact. Prostate is moderately enlarged, anodular and nontender to digital inspection. No other abnormalities noted on additional inspection of anal canal or distal rectal vault. The colonoscope was inserted into the rectum and advanced to the cecum. The cecum was identified by identification of ileocecal valve and cecal strap. Photographic documentation was obtained. Quality of prep was good. FINDINGS: There was no evidence for internal or external hemorrhoids and the rectum was unremarkable. There was some narrowing extrinsically without evidence for stricture formation and no evidence for diverticular disease involving the proximal sigmoid colon, which was otherwise unremarkable. The descending colon and splenic flexure were unremarkable. Present in the proximal transverse colon were several small areas of telangiectasia. No hematocystic spots were noted. No evidence for blood was noted in the colon. The hepatic flexure, ascending colon and cecum were unremarkable with no other areas of telangiectasia being identified. ASSESSMENT AND PLAN: No evidence for neoplasia was identified on today's procedure. It is debatable as to whether or not future surveillance colonoscopy should be recommended, but would feel comfortable having discussion with the patient further procedure in 5 years pending health and life expectancy at that time. The patient did have several small telangiectasia noted in the proximal transverse colon appear low risk for future bleeding. The patient also likely has some extrinsic adhesions causing some narrowing, but has been asymptomatic and most likely due to previous complicated gallbladder surgery for which there may have been some biliary duct trauma or pancreatitis complication. We would not recommend further investigation unless the patient was becoming symptomatic/obstructive symptomatology. Thank you for the referral. Job ID: [id number] DocumentID: [id number] Dictated Date: 09/08/2019 11:05:17 Jacquard Loom Weaver Date: 09/08/2019 13:16:11 Dictated By: TORRES ZAMARRIPA MD
== END 2019-09-08 09:53 | disposition home or self-care (01) ==
LOC: ENDO 07:25
PROVIDERS: ATTEND Internal Medicine
DX: Z12.11 Encounter for screening for malignant neoplasm of colon (principal); I10 Essential (primary) hypertension; E78.5 Hyperlipidemia, unspecified; I25.10 Atherosclerotic heart disease of native coronary artery without angina pectoris; Z79.82 Long term (current) use of aspirin; Z79.899 Other long term (current) drug therapy

== ENCOUNTER → 2020-04-01 | Outpatient (CLI) | payer MEDICARE, OTHER ==
[~2020-04-01] MED LIST changes: -TAMS0.4C98 PO; +TMSL.4C PO; -TRAM50TA2; +TRM50T
--- NOTE | 2020-04-01 14:08 | Diagnostic Imaging Report ---
PROCEDURE: CT neck soft tissue without contrast. TECHNIQUE: Multiple contiguous axial images were obtained through the neck without the use of intravenous contrast. Auto Exposure Controls were utilized during the CT exam to meet ALARA standards for radiation dose reduction. INDICATION: Lump on the left side of the neck for one month. COMPARISON: None. FINDINGS: The posterior nasopharynx and oropharynx demonstrate appropriate symmetry. There is no displacement of the parapharyngeal fat planes. There is no abnormal process evident within the prevertebral or retropharyngeal space. There is no evidence of abnormal thickening of the epiglottis or aryepiglottic folds. The vocal folds appear symmetric. The parotid, submandibular and thyroid gland are unremarkable. No pathologically enlarged cervical lymph nodes are evident. No focal inflammatory changes are demonstrated. No soft tissue mass or fluid collection demonstrated. No focal abnormalities are visualized in the area of palpable abnormality marked with a BB. Scattered atherosclerotic plaque is seen in the bilateral carotid bulbs and proximal internal carotid arteries. The visualized lung apices are clear. The visualized intracranial contents demonstrate no evidence of pathologic intracranial enhancement or intracranial mass effect. Visualized orbital contents are unremarkable. Retained secretions and atelectasis are noted in the left maxillary sinus. There is associated wall thickening and dense secretions within the left maxillary sinus, consistent with chronic sinusitis. The mastoids and middle ears are clear. No acute osseous abnormality in the cervical spine. 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 IMPRESSION: 1. No evidence of mass or fluid collection in the area of palpable abnormality in the left lower neck. The palpable abnormality may represent a normal-sized lymph node in this area or vascular structure. No further follow-up is recommended. 2. Unremarkable appearance of the aerodigestive tract without evidence of mass or stenosis. 3. No pathologically enlarged lymphadenopathy is seen in the neck. Dictated by: Dictated on workstation # [id number]
== END ==
LOC: RAD 13:29
PROVIDERS: ATTEND Internal Medicine
DX: R22.1 Localized swelling, mass and lump, neck (principal); R59.0 Localized enlarged lymph nodes
CPT/HCPCS: 70490

== ENCOUNTER → 2020-08-26 | Outpatient (CLI) | payer MEDICARE, OTHER | LOC: CARD 09:51 | PROVIDERS: ATTEND Internal Medicine Cardiovascular Disease | DX: I35.1 Nonrheumatic aortic (valve) insufficiency (principal) | CPT/HCPCS: 93306 ==

== ENCOUNTER → 2020-08-28 | Outpatient (CLI) | payer MEDICARE, OTHER ==
[~2020-08-28] VITALS: Ht 177 cm; Wt 86.0 kg
[~2020-08-28] MED LIST changes: +CATHETER FLUSH 10 ML SYR IV PRN; +REGADENOSON 0.4 MG/5 ML SYR (LEXISCAN) IV ONE
[2020-08-28 13:13] VITALS: BP 160/82
--- NOTE | 2020-08-28 15:22 | Cardiology Stress Test Report ---
Stress Test Report Date of Procedure/Referring: Date of Procedure: Aug 28, 2020 PCP Brigido Christensen MD Admitting Physician Michael Garcia DO Indications: Dyspnea Baseline Heart Rate: 62 Baseline Blood Pressure: Blood Pressure Systolic: 160 Blood Pressure Diastolic: 82 Baseline Vitals Vital Signs Date Time Temp Pulse Resp B/P (MAP) Pulse Ox O2 Delivery O2 Flow Rate FiO2 08/28/20 13:13 62 160/82 (108) 98 Baseline EKG: Baseline EKG: normal sinus rhythm Summary After explaining the procedure to the patient, he signed a consent and then brought to the stress nuclear laboratory. Patient received 0.4 mg Lexiscan for stress test, ECG, heart rate and blood pressure were monitored continuously. Resting and stress dose of radio tracer were injected, imaging was acquired and reviewed in short axis, horizontal long axis and vertical long axis views. TID: 0.96 SSS: 11 SDS: 5 EF: 50 1. Patient tolerated Lexiscan well 2. Decreased uptake at the basal to mid anterolateral and inferolateral wall with mild reversibility, probably due to extracardiac attenuation 3. Normal left ventricular size, EF 50 percent BRIGIDO CHRISTENSEN MD Aug 28, 2020 15:22
== END ==
LOC: CARD 11:45
PROVIDERS: ATTEND Internal Medicine Cardiovascular Disease
DX: R06.09 Other forms of dyspnea (principal)
CPT/HCPCS: 78452; 93017; A9502

== ENCOUNTER 2020-10-02 09:00 | Day surgery (SDC) | payer MEDICARE, OTHER ==
[~2020-10-02] VITALS: Ht 178 cm; Wt 87.0 kg
[2020-10-02] VITALS (11 sets, daily range): BP systolic 111–145; BP diastolic 66–81
[2020-10-02] MEDS: NS IV 1000 ML 1,000 ML IV SCH ×2 (07:19→09:15)
[2020-10-02 07:31] LABS: MEAN PLATELET VOLUME 10.6 fL (9.0-12.2); WHITE BLOOD COUNT 6.9 10^3/uL (4.3-11.0)
[2020-10-02 07:48] LABS: PROTHROMBIN TIME PATIENT 13.2 SEC (12.2-14.7)
[2020-10-02 08:00] LABS: ALBUMIN 4.4 GM/DL (3.2-4.5); BILIRUBIN,TOTAL 0.6 MG/DL (0.1-1.0); CALCIUM 9.4 MG/DL (8.5-10.1); CREATININE SERUM 1.36 MG/DL (0.60-1.30); POTASSIUM 4.1 MMOL/L (3.6-5.0); TOTAL PROTEIN 7.4 GM/DL (6.4-8.2)
--- NOTE | 2020-10-02 08:35 | Diagnostic Imaging Report ---
CHEST 1 VIEW, AP/PA ONLY Indication: Preprocedural workup for heart catheterization. Comparison: 05/04/2018 Findings: Stable calcified pulmonary nodule in the right midlung zone due to old granulomatous infection. Otherwise, visualized aspects of the lungs are clear. No pleural effusion or pneumothorax. Normal cardiac silhouette status post CABG. Impression: 1. No acute cardiopulmonary process by portable radiography. Dictated by: Dictated on workstation # [id number]
[~2020-10-02 09:00] MED LIST changes: -CATHETER FLUSH 10 ML SYR IV PRN; +HEParin (CATH LAB) 2,000 ML IV ONE; +LIDOCAINE 1% INJ 20 ML 20 ML VIAL ONE; +MIDAZOLAM 5 MG/5 ML (VERSED) VIAL ONE; +NS IV 1000 ML 1,000 ML ONE; -REGADENOSON 0.4 MG/5 ML SYR (LEXISCAN) IV ONE; +fentaNYL INJECTION 100 MCG/2 ML AMP ONE
[2020-10-02] MEDS ORDERED: NS IV 1000 ML 1,000 ML ONE (09:08)
--- NOTE | 2020-10-02 09:21 | Cardiac Procedure Note-CS/ASA ---
Pre-Procedure Note Pre-Op Procedure Note H&P Reviewed The H&P was reviewed, patient examined and no changes noted. Date H&P Reviewed: Oct 02, 2020 Time H&P Reviewed: 09:21 Conscious Sedation Pre-Proced Time 09:21 ASA Score 3 For ASA 3 and 4: Consider anesthesia and medical clearance. Also, for patients with a history of failed moderate sedation consider anesthesia. Airway Lungs Heart ASA score ASA 1: a normal healthy patient ASA 2: a patient with a mild systemic disease (mid diabetes, controlled hypertension, obesity x ASA 3: a patient with a severe systemic disease that limits activity (angina, COPD, prior Myocardial infarction) ASA 4: a patient with an incapacitating disease that is a constant threat to life (CHF, renal failure) ASA 5: a moribund patient not expected to survive 24 hrs. (ruptured aneurysm) ASA 6: a declared brain- patient whose organs are being harvested. For emergent operations, add the letter E after the classification Mallampati Classification Grade 3 Sedation Plan Analgesia, Amnesia, Plan communicated to team members, Discussed options with patient/fam, Discussed risks with patient/fam The patient is an appropriate candidate to undergo the planned procedure, sedation, and anesthesia. The patient immediately re-assessed prior to indication. BRIGIDO RICE MD Oct 02, 2020 09:21
--- NOTE | 2020-10-02 09:22 | Discharge Inst-Post CATH ---
Discharge Inst-CATH/EP Problems Reviewed?: Yes Post Cardiac Cath/EP D/C Inst Follow Up/Plan Appointment with Dr. RICE's office in 4 weeks <b>CARDIAC CATH/EP PROCEDURE DISCHARGE INSTRUCTIONS</b> ACTIVITY * Go Home directly and rest. * Limit activity of the leg (or wrist if it was used) for 7 days including aerobics, swimming, jogging, bicycling, etc. * Restrict stair-climbing for 7 days if possible, if not, climb up with your non-cath leg, then bring together on the same step. * Avoid lifting, pushing, pulling or excessive movement of the affected extremity for 7 days. * Customary sexual activity may be resumed after 2 days-use caution not to use a position that strains or causes pain to the affected extremity. * No driving for 24 hours. * NO SMOKING. * Avoid straining for bowel movements for 7 days. * Gentle walking on level ground is allowed. * Returning to work will depend on the type of procedure and the results. Your doctor will discuss this with you. CALL YOUR DOCTOR FOR ANY OF THE FOLLOWING: *If bleeding from the puncture site occurs- Apply gentle pressure to site with clean cloth and call your doctor or EMS. * If a knot or lump forms under the skin, increases in size, or causes pain. * If bruising appears to be worsening or moving further down your leg instead of disappearing. * Temperature above 101 F. CARE OF YOUR GROIN INCISION; * Bruising or purple discoloration of the skin near the puncture site is common. * You may shower only, no bathtub bathing for 5 days. Be careful to avoid slipping as your leg may feel stiff. * If a closure device was used on your femoral artery, please see the attached guide regarding care of the device and your leg. * Leave dressing on FOR 24 hours. CARE OF YOUR WRIST INCISION; * Bruising or purple discoloration of the skin near the puncture site is common. * You may shower. * DO NOT submerge wrist. * Leave dressing on FOR 24 hours. BRIGIDO RICE MD Oct 02, 2020 09:22
--- NOTE | 2020-10-02 09:29 | Cardiac Cath Report ---
Cardiac Cath Report Physician (s)/Cleaning Machine Operator (s) Physician BRIGIDO RICE MD Pre-Procedure Diagnosis Pre-Procedure Diagnosis: Coronary artery disease Post-Procedure Note Procedure Start Date: Oct 02, 2020 Procedure Start Time: 09:23 Name of Procedure: Left heart catheterization Vein graft angiogram URIBE angiogram Findings/Procedure Note PROCEDURE NOTE: 75-year-old gentleman with history of coronary artery disease, CABG, extensive disease, had an abnormal stress test and scheduled for cardiac catheterization possible PTCA After explaining the procedure to the patient, all pros and cons were explained, all questions were answered. The patient signed the consent and then he was butch doni on the cardiac catheterization laboratory. Groin was prepped SL fashion local anesthesia was used. Sheath placed in the right femoral artery. [place] right and left catheter were used to access the coronary system.Vein Graft evaluated. URIBE evaluated. Pigtail was used to access the left ventricular cavity. Left ventriculogram was not done, pressure was measured At the end of the procedure the sheath was removed. Closure device FINDINGS: Hemodynamics LV 137/19, end-diastolic pressure of 19 Aorta 139/61 mean of 91 ANATOMY: Left Main is totally occluded Left Anterior Descending is occluded, URIBE to LAD is patent with good flow distally, small vessel disease distally Left Circumflex is occluded, vein graft to the obtuse marginal branch is patent Right Coronory Artery has patent stent, distally just above the bifurcation there is 40-50 percent stenosis that did not change compared to the study of 2018 URIBE angiogram showed small URIBE but patent to the LAD with good flow distally, small vessel disease distally Vein Graft evaluation showed 3 vein grafts, 2 vein grafts are known to be occluded probably to the diagonal and right coronary artery. Vein graft to the obtuse marginal branch is patent, good flow distally, proximally on the previous study patient has severe stenosis limiting the amount of retrograde flow in the circumflex territory, that area is occluded at this time the only flow is antegrade from the vein graft LV Gram was not done, pressure was measured CONCLUSION: 1. Occluded [place] left coronary system with patent URIBE to LAD and vein graft to the obtuse marginal branch. Occluded vein graft to the diagonal artery 2. Patent 2 stents in the [place] right coronary artery, distally just above the bifurcation there is 40-50 percent stenosis, beyond that area there is small vessel disease 3. Patient has known occluded 2 vein grafts probably to the diagonal and right coronary artery 4. Mildly elevated left ventricular end-diastolic pressure DISCUSSION AND RECOMMENDATION: Medical therapy is recommended no intervention is needed Anesthesia Type: Conscious Sedation Estimated blood loss (mL): 25 ml Contrast Amount: 41 ml Total Radiation Dose: 406 mGy Post-Procedure Diagnosis Post-operative diagnosis: Coronary artery disease Chest pain Hypertension Hyperlipidemia BRIGIDO RICE MD Oct 02, 2020 09:29
[2020-10-02] MEDS ORDERED: NS IV 1000 ML 1,000 ML IV SCH (09:30)
[2020-10-02] MEDS ORDERED: PATIENT MAY USE OWN MEDS, ALL PO SCH (09:30)
[2020-10-02 09:57] LABS: CHOLESTEROL 126 MG/DL (< 200); HDL CHOLESTEROL 41 MG/DL (40-60); TRIGLYCERIDES 72 MG/DL (<150); VLDL CHOLESTEROL 14 MG/DL (5-40)
== END 2020-10-02 14:00 ==
LOC: CATH 09:00 → SDC 09:48 → CATH 14:00
PROVIDERS: ATTEND Internal Medicine Cardiovascular Disease
DX: I25.10 Atherosclerotic heart disease of native coronary artery without angina pectoris (principal); I10 Essential (primary) hypertension; E78.5 Hyperlipidemia, unspecified; R94.39 Abnormal result of other cardiovascular function study; Z79.82 Long term (current) use of aspirin; Z87.891 Personal history of nicotine dependence; Z80.9 Family history of malignant neoplasm, unspecified
CPT/HCPCS: 71045; 80053; 80061; 85027; 85610; 85730; 87081; 93459; C1760; C1894; 36415

== ENCOUNTER → 2022-03-24 | Outpatient (CLI) | payer MEDICARE, OTHER ==
[~2022-03-24] MED LIST changes: -HEParin (CATH LAB) 2,000 ML IV ONE; -ISOS30TA3 PO; +ISOS30TA82 PO; -LIDOCAINE 1% INJ 20 ML 20 ML VIAL ONE; -LISI-552 PO; -LISI10TA2 PO; +LISI10TA25 PO; +LISI20TA26 PO; -MIDAZOLAM 5 MG/5 ML (VERSED) VIAL ONE; -NS IV 1000 ML 1,000 ML ONE; -fentaNYL INJECTION 100 MCG/2 ML AMP ONE
== END ==
LOC: CARD 08:45
PROVIDERS: ATTEND Physician Assistant
DX: I11.9 Hypertensive heart disease without heart failure (principal); I35.1 Nonrheumatic aortic (valve) insufficiency
CPT/HCPCS: 93306

== ENCOUNTER 2023-03-24 14:07 | Outpatient (RCR) | payer MEDICARE | END 2023-04-12 | disposition home or self-care (01) | PROVIDERS: ATTEND Podiatrist | DX: M76.821 Posterior tibial tendinitis, right leg (principal); I11.9 Hypertensive heart disease without heart failure ==